=== PATIENT | male | born 1930 | race Caucasian/White ===

== ENCOUNTER 2016-09-16 14:02 | Emergency (ER) | payer MEDICARE, BC ==
--- NOTE | 2016-09-16 15:40 | UC ---
Upper Extremity HPI - HPI Summary HPI Summary: 86 y/o male c/o left fifth finger redness, swelling, and tenderness which began at least 2 days ago. Denies any mechanism of injury or break in the skin but states, "I pick my nails all the time, and sometimes get infections from it." Redness and tenderness centered over the DCP joint. Reports, "having a gout flare up last night in his foot," denies any other symptoms. - History of Current Complaint Chief Complaint: UCSkin Stated Complaint: LEFT HAND/PINKY COMPLAINT Time Seen by Provider: 09/16/16 15:30 Hx Obtained From: Patient ?: No Onset/Duration: Sudden Onset - Patient reports he woke up with the finger swollen and painful 2 days ago Severity Initially: Severe Severity Currently: Severe - Severe pain to touch Pain Intensity: 6 Pain Scale Used: 0-10 Numeric Location Of Pain: Is Discrete @ - Left fifth DCP joint Aggravating Factor(s): Movement, Flexion, Extension Alleviating Factor(s): Nothing Associated Signs And Symptoms: Positive: Swelling, Redness - Risk Factors Non-Orthopedic Risk Factor: Negative DVT Risk Factors: Negative Septic Arthritis Risk Factor: Negative Compartment Syndrome Risk Factors: Pain - Allergies/Home Medications Allergies/Adverse Reactions: Allergies Allergy/AdvReac Type Severity Reaction Status Date / Time Furosemide Allergy Break out Verified 10/23/15 09:51 with rash Iodine Allergy Hives Verified 10/23/15 09:51 Home Medications: Home Medications Pantoprazole Sodium 40 mg PO DAILY 09/16/16 [History Confirmed 09/16/16] PMH/Surg Hx/FS Hx/Imm Hx Previously Healthy: Yes Endocrine History Of: Reports: Diabetes - NIDDM Denies: Thyroid Disease Cardiovascular History Of: Reports: Cardiac Disorders - TRIPLE BYPASS 1994, Hypertension, Pacemaker/ICD - both Respiratory History Of: Denies: Asthma GI/ History Of: Reports: Gall Bladder Disease - gall bladder removed, Renal Disease - Lt kidney removed 1969 Denies: Ulcer Neurological History Of: Denies: TIA, CVA, Dementia Psychological History Of: Denies: Anxiety, Depression - Surgical History Surgical History: Yes Surgery Procedure, Year, and Place: TRIPLE BYPASS, DIFIBRALATOR,PROSTATE REMOVAL , NEPHRECTOMY-LEFT,GALL BLADDER,APPENDECTOMY,SHOULDER SURGERY, - Family History Known Family History: Positive: Hypertension, Diabetes - Social History Occupation: Retired Alcohol Use: None Substance Use Type: None Smoking Status (MU): Former Smoker When Did the Patient Quit Smoking/Using Tobacco: 1988 - Immunization History Most Recent Influenza Vaccination: unknown Most Recent Tetanus Shot: unknown Most Recent Pneumonia Vaccination: uknown Review of Systems Constitutional: Negative Skin: Other - Left fifth finger inflammation Eyes: Negative ENT: Negative Respiratory: Negative Cardiovascular: Negative Gastrointestinal: Negative Genitourinary: Negative Motor: Negative Neurovascular: Negative Musculoskeletal: Edema - Left fifth finger Neurological: Negative Psychological: Negative All Other Systems Reviewed And Are Negative: Yes Physical Exam Triage Information Reviewed: Yes Appearance: Well-Appearing, No Pain Distress Vital Signs: Initial Vital Signs Temp 97.8 F 09/16/16 15:05 Pulse 70 09/16/16 15:05 Resp 16 09/16/16 15:05 Pulse Ox 97 09/16/16 15:05 Vital Signs Reviewed: Yes Eye Exam: Normal Eyes: Positive: Conjunctiva Clear ENT Exam: Normal ENT: Positive: Normal ENT inspection, Pharynx normal, Nasal congestion, TMs normal Dental Exam: Normal Neck exam: Normal Neck: Positive: Supple Respiratory Exam: Normal Respiratory: Positive: Chest non-tender, Lungs clear, Normal breath sounds, No respiratory distress Cardiovascular: Positive: RRR, No Murmur, Pulses Normal Abdominal Exam: Normal Abdomen Description: Positive: Nontender, No Organomegaly, Soft Bowel Sounds: Positive: Present Musculoskeletal Exam: Normal Musculoskeletal: Positive: ROM Limited @ - left fifth finger r/t to inflammation , Edema @ - Left fifth finger, Other: - Tenderness located over the left fifth DCP joint Neurological: Positive: Alert Psychological Exam: Normal Skin: Positive: Other - Left fifth finger swelling and inflammation Upper Extremity Course/Dx - Differential Dx/Diagnosis Provider Diagnoses: Left fifth finger cellulitis. Possible acute gout flare-up left fifth DCP joint Discharge - Discharge Plan Condition: Stable Disposition: HOME Prescriptions: Cephalexin CAP* [Keflex 500 CAP*] 500 mg PO TID #21 cap Naproxen TAB* [Naprosyn TAB*] 250 mg PO Q8H PRN #21 tab PRN Reason: Pain Patient Education Materials: Cellulitis (ED) Referrals: Andres Suarez MD [Primary Care Provider] - 7 Days Additional Instructions: Follow-up with Primary care provider in the next week to assess symptoms. If symptoms worsen, seek medical attention. Also, as discussed, seek medical care for worsening swelling, redness, pain, or streaking down the finger or the hand.
[2016-09-16 16:20] VITALS: BP 118/59
== END 2016-09-16 16:20 | disposition home or self-care (01) ==
LOC: UCCORT 14:02
DX: L03.012 Cellulitis of left finger (principal); Z95.0 Presence of cardiac pacemaker; Z88.8 Allergy status to other drugs, medicaments and biological substances; Z87.891 Personal history of nicotine dependence
CPT/HCPCS: 99212; G0463

== ENCOUNTER 2016-10-20 11:42 | Emergency (ER) | payer MEDICARE, BC ==
[2016-10-20 11:57] VITALS: BP 138/72
--- NOTE | 2016-10-20 12:33 | UC ---
Upper Extremity HPI - HPI Summary HPI Summary: Left arm pain since last night. No history of injury. Has a cardiac hx but denied any CP or shortness of breath. Not sure if had injury. Pain with movement of arm . [ End ] - History of Current Complaint Chief Complaint: UCUpperExtremity Stated Complaint: LEFT ARM PAIN-HX OF HEART Time Seen by Provider: 10/20/16 12:17 Hx Obtained From: Patient, Family/Chef Head - daughter in law Onset/Duration: Sudden Onset Severity Initially: Moderate Severity Currently: Moderate Location Of Pain: Is Diffuse - left shoulder and down arm Character: Dull, Stiffness Aggravating Factor(s): Movement Alleviating Factor(s): Rest Associated Signs And Symptoms: Positive: Negative - Risk Factors Compartment Syndrome Risk Factors: Pain - Allergies/Home Medications Allergies/Adverse Reactions: Allergies Allergy/AdvReac Type Severity Reaction Status Date / Time Furosemide Allergy Break out Verified 10/20/16 12:08 with rash Iodine Allergy Hives Verified 10/20/16 12:08 PMH/Surg Hx/FS Hx/Imm Hx Previously Healthy: Yes Endocrine History Of: Reports: Diabetes - NIDDM Denies: Thyroid Disease Cardiovascular History Of: Reports: Cardiac Disorders - TRIPLE BYPASS 1994, Hypertension, Pacemaker/ICD - both Respiratory History Of: Denies: Asthma GI/ History Of: Reports: Gall Bladder Disease - gall bladder removed, Renal Disease - Lt kidney removed 1969 Denies: Ulcer Neurological History Of: Denies: TIA, CVA, Dementia Psychological History Of: Denies: Anxiety, Depression - Surgical History Surgical History: Yes Surgery Procedure, Year, and Place: TRIPLE BYPASS, DEFIBRALATOR,PROSTATE REMOVAL , NEPHRECTOMY-LEFT 1969,GALL BLADDER,APPENDECTOMY,LEFT SHOULDER SURGERY, - Family History Known Family History: Positive: Hypertension, Diabetes - Social History Occupation: Retired Lives: Alone Alcohol Use: None Substance Use Type: None Smoking Status (MU): Former Smoker When Did the Patient Quit Smoking/Using Tobacco: 1988 - Immunization History Most Recent Influenza Vaccination: unknown Most Recent Tetanus Shot: unknown Most Recent Pneumonia Vaccination: uknown Review of Systems Constitutional: Negative Skin: Negative Eyes: Negative ENT: Negative Respiratory: Negative Cardiovascular: Negative Gastrointestinal: Negative Genitourinary: Negative Motor: Negative Neurovascular: Negative Musculoskeletal: Arthralgia, Decreased ROM Neurological: Negative Psychological: Negative All Other Systems Reviewed And Are Negative: Yes Physical Exam Triage Information Reviewed: Yes Appearance: Well-Appearing, No Pain Distress, Well-Nourished Vital Signs: Initial Vital Signs Temp 98.1 F 10/20/16 11:51 Pulse 65 10/20/16 11:51 Resp 16 10/20/16 11:51 BP 138/72 10/20/16 11:51 Pulse Ox 97 10/20/16 11:51 Vital Signs Reviewed: Yes Eye Exam: Normal Neck: Positive: 1 Respiratory Exam: Normal Cardiovascular Exam: Normal Cardiovascular: Positive: RRR, Pulses Normal, Brisk Capillary Refill. Negative : Tachycardia, Bradycardia, Distal Pulses Weak, Distal Pulses Absent, Delayed Capillary Refill Musculoskeletal: Positive: No Edema, Strength Limited @ - hand strength right 5/ 5 and left 5/5 Left arm with reduced ROM and dimished greatly. flexion of shoulder 10 degrees before pain., ROM Limited @ - diffusely at left shoulder. Negative: Edema @ Neurological Exam: Normal Psychological Exam: Normal Skin Exam: Normal, Other - both hands with similar color appearance, radial pulses present and normal Re-Evaluation - Re-Evaluation First Eval Change: Unchanged Comment: Reviewed xray -- he agree with plan shoulder rotator cuff could be causing pain. AVOID NSAIDs. He declined shoulder brace as he has one at home that he will wear. Daughter in law and patient aware and agree with plan to call ortho tomorrow for possible MRI. Upper Extremity Course/Dx - Differential Dx/Diagnosis Differential Diagnosis/HQI/PQRI: Bursitis, Fracture (Closed), Septic Arthritis, Strain, Sprain Provider Diagnoses: Left shoulder pain Discharge - Discharge Plan Condition: Good Disposition: HOME Patient Education Materials: Shoulder Pain (ED) Referrals: Andres Suarez MD [Primary Care Provider] - 3 Days Sharona Milton MD [Medical Doctor] - Additional Instructions: As we discussed your xray shows possible rotator cuff pathology and you should follow up with Ortho. Please use your shoulder brace at home as well. Please avoid NSAIDs like motrin or Aleve for pain due to your cardiac history. You may use tylenol .
--- NOTE | 2016-10-20 13:09 | RAD ---
INDICATION: Left shoulder pain. COMPARISON: Comparison is made with a prior study from December 08, 2007. TECHNIQUE: 3 views of the left shoulder were obtained. FINDINGS: Postsurgical changes most likely from a prior rotator cuff tear are noted. There is mild superior subluxation of the humeral head possibly indicating underlying rotator cuff pathology. No fracture is seen. There is mild to moderate osteoarthritic change in the glenohumeral joint. IMPRESSION: 1. MILD SUPERIOR SUBLUXATION OF THE HUMERAL HEAD POSSIBLY INDICATING UNDERLYING ROTATOR CUFF PATHOLOGY. THIS CAN BE FURTHER EVALUATED WITH AN MRI OF THE SHOULDER. 2. POSTSURGICAL CHANGES. 3. MILD TO MODERATE OSTEOARTHRITIC CHANGE.
== END 2016-10-20 13:45 | disposition home or self-care (01) ==
LOC: UCCORT 11:42
DX: M25.512 Pain in left shoulder (principal); E11.9 Type 2 diabetes mellitus without complications; I10 Essential (primary) hypertension; Z95.0 Presence of cardiac pacemaker; Z95.1 Presence of aortocoronary bypass graft; Z90.49 Acquired absence of other specified parts of digestive tract; Z90.5 Acquired absence of kidney; Z87.891 Personal history of nicotine dependence
CPT/HCPCS: 93005; 99212; G0463

== ENCOUNTER 2016-11-08 08:07 | Emergency (ER) | payer MEDICARE, BC ==
[2016-11-08] MEDS ORDERED: Ketorolac INJ* 60 MG/2 ML VIAL IM ONE (08:32)
[2016-11-08] MEDS ORDERED: Diazepam TAB(*) 5 MG PO ONE (08:33)
--- NOTE | 2016-11-08 09:50 | RAD ---
HISTORY: Left neck pain COMPARISONS: None TECHNIQUE: Multiple transverse and longitudinal ultrasound images were obtained of the carotid and vertebral arteries on the left, using grayscale, color Doppler, and spectral Doppler imaging. FINDINGS: Measurement of carotid stenosis is based on flow velocity parameters that correlate the residual internal carotid artery diameter with [place] Symptomatic Carotid Endarterectomy Trial (NASCET)-based stenosis levels. RIGHT: No images are submitted of the right vertebral or internal carotid artery LEFT: Intima: There is diffuse intimal thickening with more focal atheroma formation at the bifurcation. Velocities: Left internal carotid artery maximum peak systolic velocity: 76 cm/s Left common carotid artery maximum peak systolic velocity: 123 cm/s Left internal carotid artery/common carotid artery ratio: 0.8 Waveforms: There is no spectral broadening. Left Vertebral: The left vertebral artery flow is antegrade. OTHER FINDINGS: None. IMPRESSION: 1. NO IMAGES ARE SUBMITTED OF THE RIGHT INTERNAL CAROTID ARTERY. 2. ATHEROMATOUS DISEASE. 3. NO LEFT INTERNAL CAROTID ARTERY STENOSIS BY NASCET CRITERIA CPT II Codes: 3100F
[2016-11-08] MEDS ORDERED: HYDROcodone/ACETAMIN 5-325 MG* 1 TAB PO ONE (10:19)
[2016-11-08 13:02] VITALS: BP 109/63
--- NOTE | 2016-12-06 10:36 | ED ---
Carlos Vargas Matthew, scribed for Saad Lucas MD on 11/08/16 at 0832 . Neck Pain - HPI Summary HPI Summary: An 86 y/o male presents to the ED with left sided neck pain for the past 2 days. The pain is rated 10/10 in severity. He was unable to get out of bed this morning from the pain, which prompted him to call EMS. The pain is worse with movement. He denies tingling, numbness, headache, difficulty swallowing, and blurry vision. No Hx of CVA. He's been taking 650mg Tylenol for the pain. He takes 81mg aspirin daily. He states that he needs surgery on his left shoulder from a previous rotator cuff injury. He was seen by his PCP yesterday. No Hx of previous neck injury or surgeries. No recent work or new sleeping locations. - History of Current Complaint Stated Complaint: LEFT SHOULDER AND NECK PAIN Time Seen by Provider: 11/08/16 08:20 Hx Obtained From: Patient Onset/Duration Of Injury/Symptoms: Days - 2 Mechanism Of Injury: No Known Trauma Timing: Constant Onset/Duration: Started days ago, Still Present Severity Initially: Moderate Severity Currently: Moderate Pain Intensity: 10 Pain Scale Used: 0-10 Numeric Location: Discrete At: - left sided of the neck Aggravating Factors: Movement Alleviating Factors: Nothing Associated Signs & Symptoms: Positive: Negative - Allergies/Home Medications Allergies/Adverse Reactions: Allergies Allergy/AdvReac Type Severity Reaction Status Date / Time Furosemide Allergy Break out Verified 10/20/16 12:08 with rash Iodine Allergy Hives Verified 10/20/16 12:08 Home Medications: Home Medications Aspirin EC Low Dose* [Ecotrin EC Low Dose 81 MG*] 81 mg PO QAM 11/08/16 [ History Confirmed 11/08/16] Bumetanide TAB* [Bumex 2 MG TAB*] 2 mg PO QPM 11/08/16 [History Confirmed ] Bumetanide TAB* [Bumex 2 MG TAB*] 4 mg PO QAM 11/08/16 [History Confirmed ] Cholecalciferol TAB* [Vitamin D TAB*] 2,000 units PO DAILY 11/08/16 [History Confirmed 11/08/16] Clotrimazole/Betamethasone* [Lotrisone Cream*] 1 applic TOPICAL BID 11/08/16 [ History Confirmed 11/08/16] Glimepiride (NF) 4 mg PO BID 11/08/16 [History Confirmed 11/08/16] Halobetasol Propionate [Ultravate] 0.05 % TOPICAL BID 11/08/16 [History Confirmed 11/08/16] Metoprolol Tartrate TAB* [Lopressor TAB*] 25 mg PO BID 11/08/16 [History Confirmed 11/08/16] Pantoprazole TAB (NF) [Protonix TAB (NF)] 40 mg PO QAM 11/08/16 [History Confirmed 11/08/16] PMH/Surg Hx/FS Hx/Imm Hx Endocrine/Hematology History: Reports: Hx Diabetes - NIDDM Denies: Hx Thyroid Disease Cardiovascular History: Reports: Hx Hypertension, Hx Pacemaker/ICD - both Respiratory History: Reports: Hx Seasonal Allergies, Hx Sleep Apnea Denies: Hx Asthma GI History: Reports: Hx Gall Bladder Disease - gall bladder removed Denies: Hx Ulcer History: Reports: Hx Renal Disease - Lt kidney removed 1969, Other Problems/Disorders - Prostate cancer Sensory History: Reports: Hx Cataracts, Hx Contacts or Glasses Opthamlomology History: Reports: Hx Cataracts, Hx Contacts or Glasses Neurological History: Denies: Hx Dementia, Hx Transient Ischemic Attacks (TIA) Psychiatric History: Denies: Hx Anxiety, Hx Depression - Cancer History Cancer Type, Location and Year: prostate 2009 - Surgical History Surgery Procedure, Year, and Place: TRIPLE BYPASS, DEFIBRALATOR,PROSTATE REMOVAL , NEPHRECTOMY-LEFT 1969,GALL BLADDER,APPENDECTOMY,LEFT SHOULDER SURGERY, Infectious Disease History: Reports: 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, Hx Shingles - in his 60's Denies: Hx Hepatitis, Hx Human Immunodeficiency Virus (HIV), Traveled Outside the [place] in Last 30 Days - Family History Known Family History: Positive: Hypertension, Diabetes - Social History Alcohol Use: None Substance Use Type: Reports: None Smoking Status (MU): Former Smoker Review of Systems Constitutional: Negative Negative: Fever, Chills Eyes: Negative Negative: Erythema ENT: Negative Negative: Sore Throat Cardiovascular: Negative Negative: Chest Pain Respiratory: Negative Negative: Shortness Of Breath, Cough Gastrointestinal: Negative Negative: Abdominal Pain, Vomiting, Diarrhea, Nausea Genitourinary: Negative Negative: dysuria, hematuria Positive: Myalgia - left sided neck pain Skin: Negative Negative: Rash Neurological: Negative Negative: Headache, Numbness Psychological: Normal All Other Systems Reviewed And Are Negative: Yes Physical Exam Triage Information Reviewed: Yes Vital Signs On Initial Exam: Temp Pulse Resp BP Pulse Ox 99.1 F 70 20 123/68 95 11/08/16 08:39 11/08/16 08:39 11/08/16 08:47 11/08/16 08:39 11/08/16 08:39 Vital Signs Reviewed: Yes Appearance: Positive: Well-Appearing, Pain Distress - miold Skin: Positive: Warm, Dry Head/Face: Positive: Other - Normocephalic; Atraumatic Eyes: Positive: Conjunctiva Clear Neck: Positive: No Lymphadenopathy, Other: - torticollis to the left; pain with lateral rotation of the neck; no carotid bruits Respiratory/Lung Sounds: Positive: Other - Normal Effort; No Respiratory Distress. Negative: Rales, Stridor, Tracheal Deviation, Wheezes Cardiovascular: Positive: RRR, Other - Rhythm regular, rate normal, Heart sounds normal; Intact distal pulses; The pedal pulses are 2+ and symmetric. Radial pulses are 2+ and symmetric.. Negative: Murmur Abdomen Description: Positive: Nontender, Soft, Other: - No Rebound. Negative: Distended, Guarding Bowel Sounds: Positive: Present Musculoskeletal: Negative: Edema Left, Edema Right Neurological: Positive: Alert, Oriented to Person Place, Time Psychiatric: Positive: Affect/Mood Appropriate Diagnostics - Laboratory Lab Statement: Any lab studies that have been ordered have been reviewed, and results considered in the medical decision making process. - Ultrasound No standard instances Ultrasound Interpretation: No Acute Changes - IMPRESSION: 1. NO IMAGES ARE SUBMITTED OF THE RIGHT INTERNAL CAROTID ARTERY. 2. ATHEROMATOUS DISEASE. 3. NO LEFT INTERNAL CAROTID ARTERY STENOSIS BY NASCET CRITERIA Ultrasound Interpretation Completed By: Radiologist Re-Evaluation - Re-Evaluation First Eval Re-Evaluation Time: 10:19 Change: Improved Comment: Mild improvement in pain Neck Course/Dx - Course Assessment/Plan: An 86 y/o male presents to the ED with left sided neck pain for the past 2 days. The pain is rated 10/10 in severity. He was unable to get out of bed this morning from the pain, which prompted him to call EMS. The pain is worse with movement. He denies tingling, numbness, headache, difficulty swallowing, and blurry vision. No Hx of CVA. He's been taking 650mg Tylenol for the pain. He takes 81mg aspirin daily. US shows 1. no images are submitted of the right internal carotid artery. 2. atheromatous disease. 3. no left internal carotid artery stenosis by nascet criteria. On revaluation, the patients pain had been improving. He will be sent home on valium and lidocaine patches to follow-up with his PCP. He understands and agrees. - Diagnoses Provider Diagnoses: Cervical strain Discharge - Discharge Plan Condition: Stable Disposition: HOME Prescriptions: Diazepam TAB(*) [Valium TAB(*)] 5 mg PO TID PRN #12 tab MDD 3 PRN Reason: Pain Scale 6-10 Lidocaine PATCH 5%* [Lidoderm 5% Patch*] 1 patch TRANSDERM DAILY #10 patch Patient Education Materials: Cervical Strain (ED), Diazepam (By mouth), Lidocaine Patch (On the skin) Referrals: Andres Suarez MD [Primary Care Provider] - 11/11/16 Additional Instructions: Please follow-up with your primary care on Friday (11/11/16). The documentation as recorded by the Carlos mei Matthew accurately reflects the service I personally performed and the decisions made by me, Saad Lucas MD.
== END 2016-11-08 13:01 | disposition home or self-care (01) ==
LOC: ED 08:07
DX: S16.1XXA Strain of muscle, fascia and tendon at neck level, initial encounter (principal); M25.512 Pain in left shoulder; M54.2 Cervicalgia; Z87.891 Personal history of nicotine dependence; X58.XXXA Exposure to other specified factors, initial encounter; Y93.9 Activity, unspecified; Y92.9 Unspecified place or not applicable
CPT/HCPCS: 96372; 99283; A9270-GY; J1885

== ENCOUNTER 2016-11-15 14:53 | Emergency (ER) | payer MEDICARE, BC ==
--- NOTE | 2016-11-15 15:46 | UC ---
UC General HPI - HPI Summary HPI Summary: bilateral lower leg swelling, pain and redness for a few days. Hx cellulitis. Also hx bladder and prostate CA. No CP, SOB. - History of Current Complaint Chief Complaint: UCLowerExtremity Stated Complaint: BILATERAL ANKLE SWELLING Time Seen by Provider: 11/15/16 15:45 Hx Obtained From: Patient Onset/Duration: Gradual Onset Timing: Constant Onset Severity: Moderate Current Severity: Moderate Pain Intensity: 2 Pain Location at: bilat lower legs Pain Radiates to: no Character: aching Aggravating: nothing Alleviating: nothing Associated Signs & Symptoms: Positive: Edema. Negative: Fever, SOB, Trauma - Allergy/Home Medications Allergies/Adverse Reactions: Allergies Allergy/AdvReac Type Severity Reaction Status Date / Time Furosemide Allergy Break out Verified 11/15/16 15:37 with rash Iodine Allergy Hives Verified 11/15/16 15:37 PMH/Surg Hx/FS Hx/Imm Hx Endocrine History Of: Reports: Diabetes - type II Denies: Thyroid Disease Cardiovascular History Of: Reports: Cardiac Disorders - TRIPLE BYPASS 1994; [place] 1988, Hypertension, Pacemaker/ICD - both Respiratory History Of: Denies: Asthma GI/ History Of: Reports: Gall Bladder Disease - gall bladder removed, Renal Disease - Lt kidney removed 1969 Denies: Ulcer Neurological History Of: Denies: TIA, CVA, Dementia Psychological History Of: Denies: Anxiety, Depression - Surgical History Surgical History: Yes Surgery Procedure, Year, and Place: TRIPLE BYPASS, DEFIBRALATOR,PROSTATE REMOVAL , NEPHRECTOMY-LEFT 1969,GALL BLADDER,APPENDECTOMY,LEFT SHOULDER SURGERY, - Family History Known Family History: Positive: Hypertension, Diabetes - Social History Occupation: Retired Alcohol Use: None Substance Use Type: None Smoking Status (MU): Former Smoker When Did the Patient Quit Smoking/Using Tobacco: 1988 - Immunization History Most Recent Influenza Vaccination: unknown Most Recent Tetanus Shot: unknown Most Recent Pneumonia Vaccination: uknown Review of Systems Constitutional: Negative Skin: Negative Eyes: Negative ENT: Negative Respiratory: Negative Cardiovascular: Negative Gastrointestinal: Negative Genitourinary: Negative Motor: Negative Neurovascular: Negative Musculoskeletal: Arthralgia, Myalgia, Other: - swelling, redness Neurological: Negative Psychological: Negative All Other Systems Reviewed And Are Negative: Yes Physical Exam Triage Information Reviewed: Yes Appearance: Well-Nourished, Ill-Appearing, Pain Distress Vital Signs: Initial Vital Signs Temp 99.1 F 11/15/16 15:30 Pulse 68 11/15/16 15:30 Resp 20 11/15/16 15:30 BP 116/69 11/15/16 15:30 Pulse Ox 97 11/15/16 15:30 Vital Signs Reviewed: Yes Eyes: Positive: Conjunctiva Clear ENT: Positive: Normal ENT inspection Neck: Positive: Supple Respiratory: Positive: Lungs clear, Normal breath sounds, No respiratory distress, No accessory muscle use Cardiovascular: Positive: RRR, No Murmur, Pulses Normal, Brisk Capillary Refill Musculoskeletal: Positive: Strength Intact, ROM Intact, Edema @ - 2+ bilat, left greater than right, Other: - redness bilat legs to knees Neurological: Positive: Alert, Muscle Tone Normal Psychological Exam: Normal Skin Exam: Normal Course/Dx - Course Course Of Treatment: pt advised that this is above the level of care for urgent care. Pt states he wants to go to [facility] by private car. Signs AMA. Ambulatory at discharge. - Differential Dx - Multi-Symptom Differential Diagnoses: Other - CHF vs Cellulitis vs DVT Provider Diagnoses: bilateral pedal edema and redness and pain - Physician Notifications Time Discussed With Above Provider: 16:00 - Dr. Isidro, [facility] Instructed by Provider To: MD Will See In ED Discharge - Discharge Plan Condition: Stable Disposition: AGAINST MEDICAL ADVICE Referrals: Andres Suarez MD [Primary Care Provider] -
[2016-11-15 16:00] VITALS: BP 116/69
== END 2016-11-15 16:14 | disposition left against medical advice (07) ==
LOC: UCCORT 14:53
DX: R60.9 Edema, unspecified (principal); M79.662 Pain in left lower leg; M79.661 Pain in right lower leg; E11.8 Type 2 diabetes mellitus with unspecified complications; I10 Essential (primary) hypertension; Z95.0 Presence of cardiac pacemaker; Z95.1 Presence of aortocoronary bypass graft; Z90.49 Acquired absence of other specified parts of digestive tract; Z90.5 Acquired absence of kidney; Z85.51 Personal history of malignant neoplasm of bladder; Z85.46 Personal history of malignant neoplasm of prostate; Z87.891 Personal history of nicotine dependence
CPT/HCPCS: 99212; G0463

== ENCOUNTER 2016-11-15 17:19 | Inpatient (IN) | payer MEDICARE, BC ==
[2016-11-15] MEDS ORDERED: ceFAZolin 1 GM in Dextrose (*) 1 GM/50 ML BAG IVPB ONE (20:29)
[2016-11-15 21:31] LABS: Hematocrit 43 % (42-52); Hemoglobin 14.3 g/dl (14.0-18.0); Mean Corpuscular HGB Conc 33 g/dl (31-36); Mean Corpuscular Hemoglobin 29 pg (27-31); Mean Corpuscular Volume 87 fL (80-94); Mean Platelet Volume 8 um3 (7.4-10.4); Red Blood Count 4.99 10^6/ul (4.0-5.4); Red Cell Distribution Width 14 % (10.5-15); White Blood Count 8.7 10^3/ul (3.5-10.8)
[2016-11-15 21:45] LABS: BUN/Creatinine Ratio 21.7 (8-20); C Reactive Protein 29.55 mg/L (< 5.00); Calcium 9.7 mg/dL (8.6-10.3); EGFR African American 43.6 (>60); EGFR Non-African American 33.9 (>60); Globulin 3.8 g/dL (2-4); Potassium 4.1 mmol/L (3.5-5.0); Total Bilirubin 0.5 mg/dL (0.2-1.0); Total Protein 7.8 g/dL (6.4-8.9)
--- NOTE | 2016-11-15 22:50 | RAD ---
INDICATION: Lower extremity pain and swelling. COMPARISON: There are no prior studies available for comparison. TECHNIQUE: Multiple real-time, color flow and Doppler tracings of both lower extremities were obtained. FINDINGS: The common femoral, femoral, profunda femoral and popliteal veins all demonstrate normal compressibility, augmentation with compression and phasic response with respiration. The examination of the calves is limited. No peroneal and only one posterior tibial vein was visualized in the right calf. On the left the posterior tibial veins were visualized although only one peroneal vein was visualized. No deep venous thrombosis is seen in the visualized veins. IMPRESSION: LIMITED EXAM OF THE CALVES, NO EVIDENCE FOR DEEP VENOUS THROMBOSIS.
[2016-11-15] MEDS ORDERED: traMADol TAB* 50 MG PO ONE (22:54)
--- NOTE | 2016-11-15 22:57 | ED ---
Madhu Vargas Aidan, scribed for Chuy Isidro MD on 11/15/16 at 2038 . Lower Extremity - HPI Summary HPI Summary: 86 y/o male presents to the ED with a complaint of acute, constant, moderately painful (7/10), erythematous, swollen bilateral lower extremities. Symptoms have persisted for the past several days. Pt denies any difficulty breathing or weeping. He is allergic to zosyn. - History of Current Complaint Chief Complaint: EDExtremityLower Stated Complaint: SWOLLEN ANKLES/SENT FROM [facility] Time Seen by Provider: 11/15/16 20:14 Hx Obtained From: Patient Mechanism Of Injury: Unknown Onset of Pain: Immediate Onset/Duration: Still Present - Sx began several days ago Severity Initially: Moderate Severity Currently: Moderate Pain Intensity: 7 Pain Scale Used: 0-10 Numeric Timing: Constant Location: Is Discrete @ - lower extremities bilaterally Character Of Pain: Unable To Describe - pain undescribed Associated Signs And Symptoms: Positive: Swelling - legs bilaterally, Redness - legs bilaterally Aggravating Factor(s): Other - unknown Alleviating Factor(s): Other - unknown Able to Bear Weight: Yes - Risk Factors Gout Risk Factors: Age Over 40, Male, Diabetes, Hypertension DVT Risk Factors: Smoking - former smoker - Allergies/Home Medications Allergies/Adverse Reactions: Allergies Allergy/AdvReac Type Severity Reaction Status Date / Time Furosemide Allergy Break out Verified 11/15/16 20:32 with rash Iodine Allergy Hives Verified 11/15/16 20:32 PMH/Surg Hx/FS Hx/Imm Hx Endocrine/Hematology History: Reports: Hx Diabetes - NIDDM Denies: Hx Thyroid Disease Cardiovascular History: Reports: Hx Hypertension, Hx Pacemaker/ICD - both Respiratory History: Reports: Hx Seasonal Allergies, Hx Sleep Apnea Denies: Hx Asthma GI History: Reports: Hx Gall Bladder Disease - gall bladder removed Denies: Hx Ulcer History: Reports: Hx Renal Disease - Lt kidney removed 1969, Other Problems/Disorders - Prostate cancer Sensory History: Reports: Hx Cataracts, Hx Contacts or Glasses Opthamlomology History: Reports: Hx Cataracts, Hx Contacts or Glasses Neurological History: Denies: Hx Dementia, Hx Transient Ischemic Attacks (TIA) Psychiatric History: Denies: Hx Anxiety, Hx Depression - Cancer History Cancer Type, Location and Year: prostate 2009 - Surgical History Surgery Procedure, Year, and Place: TRIPLE BYPASS, DEFIBRALATOR,PROSTATE REMOVAL , NEPHRECTOMY-LEFT 1970,GALL BLADDER,APPENDECTOMY,LEFT SHOULDER SURGERY, Infectious Disease History: Reports: 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 Negative: Myalgia, Decreased ROM Skin: Other - erythematous legs bilaterally Negative: Rash, Bruising All Other Systems Reviewed And Are Negative: Yes Physical Exam Triage Information Reviewed: Yes Vital Signs On Initial Exam: Initial Vitals Temp Pulse Resp BP Pulse Ox 97.7 F 72 20 137/64 98 11/15/16 17:21 11/15/16 17:21 11/15/16 17:21 11/15/16 17:21 11/15/16 17:21 Vital Signs Reviewed: Yes Appearance: Positive: Well-Appearing, No Pain Distress Skin: Positive: Warm, Skin Color Reflects Adequate Perfusion, Dry Head/Face: Positive: Normal Head/Face Inspection Eyes: Positive: Normal ENT: Positive: Normal ENT inspection Neck: Positive: Supple, Nontender Respiratory/Lung Sounds: Positive: Clear to Auscultation, Breath Sounds Present Cardiovascular: Positive: RRR Abdomen Description: Positive: Nontender, Soft Bowel Sounds: Positive: Present Musculoskeletal: Positive: Edema Left - bilateral lower extremity edema and erythema with warmth, Edema Right - bilateral lower extremity edema and erythema with warmth Neurological: Positive: Normal Psychiatric: Positive: Affect/Mood Appropriate Diagnostics - Vital Signs Vital Signs Temp Pulse Resp BP Pulse Ox 11/15/16 18:56 98.1 F 72 18 121/83 96 11/15/16 17:21 97.7 F 72 20 137/64 98 - Laboratory Lab Results: Lab Results 11/15/16 11/15/16 11/15/16 Range/Units 21:15 21:15 21:15 WBC 8.7 (3.5-10.8) 10^3/ul RBC 4.99 (4.0-5.4) 10^6/ul Hgb 14.3 (14.0-18.0) g/dl Hct 43 (42-52) % MCV 87 (80-94) fL MCH 29 (27-31) pg MCHC 33 (31-36) g/dl RDW 14 (10.5-15) % Plt Count 173 (150-450) 10^3/ul MPV 8 (7.4-10.4) um3 Neut % (Auto) 67.3 (38-83) % Lymph % (Auto) 17.9 L (25-47) % [place] % (Auto) 8.8 (1-9) % Eos % (Auto) 5.4 (0-6) % Baso % (Auto) 0.6 (0-2) % Absolute Neuts (auto) 5.8 (1.5-7.7) 10^3/ul Absolute Lymphs (auto) 1.5 (1.0-4.8) 10^3/ul Absolute Monos (auto) 0.8 (0-0.8) 10^3/ul Absolute Eos (auto) 0.5 (0-0.6) 10^3/ul Absolute Basos (auto) 0.1 (0-0.2) 10^3/ul Absolute Nucleated RBC 0 10^3/ul Nucleated RBC % 0 D-Dimer, Quantitative 374 H (Less Than 230) ng/mL Sodium 135 (133-145) mmol/L Potassium 4.1 (3.5-5.0) mmol/L Chloride 100 L (101-111) mmol/L Carbon Dioxide 28 (22-32) mmol/L Anion Gap 7 (2-11) mmol/L BUN 41 H (6-24) mg/dL Creatinine 1.89 H (0.67-1.17) mg/dL Est GFR ( Amer) 43.6 (>60) Est GFR (Non-Af Amer) 33.9 (>60) BUN/Creatinine Ratio 21.7 H (8-20) Glucose 135 H (70-100) mg/dL Calcium 9.7 (8.6-10.3) mg/dL Total Bilirubin 0.50 (0.2-1.0) mg/dL AST 16 (13-39) U/L ALT 14 (7-52) U/L Alkaline Phosphatase 65 (34-104) U/L C-Reactive Protein 29.55 H (< 5.00) mg/L Total Protein 7.8 (6.4-8.9) g/dL Albumin 4.0 (3.2-5.2) g/dL Globulin 3.8 (2-4) g/dL Albumin/Globulin Ratio 1.1 (1-3) Result Diagrams: 11/15/16 21:15 11/15/16 21:15 Lab Statement: Any lab studies that have been ordered have been reviewed, and results considered in the medical decision making process. Lower Extremity Course/Dx - Course Course Of Treatment: 86 y/o presents with bilateral lower extremity edema and erythema with warmth. He was R/U'd for DVT and given antibiotics and pain meds in the ED. He is stable and will be given a trial of outpatient treatment. - Diagnoses Provider Diagnoses: Cellulitis Discharge - Discharge Plan Condition: Stable Disposition: HOME Discharge Disposition Comment: Please follow up with your primary care privider within 2 days. Patient Education Materials: Cellulitis (ED) Referrals: Andres Suarez MD [Primary Care Provider] - The documentation as recorded by the Madhu mei Aidan accurately reflects the service I personally performed and the decisions made by me, Chuy Isidro MD.
[2016-11-15] MEDS ORDERED: Cephalexin CAP* 500 MG PO ONE (22:58)
[2016-11-16] MEDS ORDERED: HYDROmorphone* 1 MG/ML 1 ML SYR IV ONE ×2 (02:31→16:55)
--- NOTE | 2016-11-16 03:16 | HP ---
H&P (Free Text) History and Physical: PCP: Grover Suarez MD Date/Time of Evaluation: 11/16/2016 0315 CC: BLE swelling HPI: Mr Briscoe is an 86YO obese male who reports rapid onset ~3days ago of BLE pain and swelling which did not improve and so today he decided to present to an urgent care for evaluation. He drove himself to urgent care where concern was had for possible DVT vs CHF vs BLE cellulitis and so he was referred on to [facility] via ambulance which he refused and signed out AMA preferring to drive himself to [facility] and ambulate in to the ED. Work up here revealed a mild BLE cellulititis, negative for DVT, & no compelling evidence for CHF. He denies chest pain, SOB, palpitations, F/C, sweats, changes in bowel/bladder, or other issues. He was given a dose of cefazolin IV and planned to be discharged on PO cephalexin. However, when presented with discharge he claimed he was unable to care for himself at home due to the L>RLE pain despite having been able to drive to and ambulate in to the ED. He was advised that admission for his condition was not considered medically necessary and that insurance may not pay for the admission. The pre-admit denial form was explained to him by ED staff and he agreed. Vitals are stable, afebrile. Labs are baseline for him. US BLE venous is negative for DVT. PMedHx CAD/3vCABG DM2 CKD stg 3b HX prostate CA HX bladder CA HTN HLD allergic rhinitis Ambulatory Orders Pravastatin (NF) [Pravachol (NF)] 20 mg PO QPM 07/23/12 Cetirizine* [ZyrTEC*] 10 mg PO QAM 02/26/15 Polyethylene Glycol 3350* [Miralax*] 17 gm PO QAM 02/26/15 Triamcinolone 0.5% CREAM(NF) [Triamcinolone 0.5% CREAM*] 1 applic TOPICAL BID Aspirin EC Low Dose* [Ecotrin EC Low Dose 81 MG*] 81 mg PO QAM 11/08/16 Bumetanide TAB* [Bumex 2 MG TAB*] 2 mg PO QPM 11/08/16 Bumetanide TAB* [Bumex 2 MG TAB*] 4 mg PO QAM 11/08/16 Cholecalciferol TAB* [Vitamin D TAB*] 2,000 units PO DAILY 11/08/16 Glimepiride (NF) 4 mg PO BID 11/08/16 Halobetasol Propionate [Ultravate] 0.05 % TOPICAL BID 11/08/16 Metoprolol Tartrate TAB* [Lopressor TAB*] 25 mg PO BID 11/08/16 Pantoprazole TAB (NF) [Protonix TAB (NF)] 40 mg PO QAM 11/08/16 Metoprolol Succinate [Toprol Xl] 25 mg PO 11/16/16 Allergies Furosemide Allergy (Verified 11/15/16 20:32) Break out with rash Iodine Allergy (Verified 11/15/16 20:32) Hives PSurgHx 3vCABG RLE saphenous vein harvest cholecystectomy appendectomy transurethral bladder CA resection prostatectomy SocHx: former smoker w/ ~25PYHX, no alcohol or recreational drugs; , lives alone; 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, 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 ; DNR/I code status FamHx: positive for HTN & DM2 ROS: as above, otherwise reviewed and all were negative Constitutional: NAD, normally developed, obese elderly white male vitals: Vital Signs Temp 37.4 C 11/15/16 20:27 Pulse 74 11/15/16 21:00 Resp 18 11/16/16 02:36 BP 143/82 11/15/16 20:34 Pulse Ox 99 11/15/16 21:00 Intake & Output 11/15/16 11/15/16 11/16/16 11:59 23:59 11:59 Weight 96.162 kg HEENM: atraumatic; sclera/conjunctiva: non-icteric/clear; hearing: clinically mildly decreased; oropharynx: clear, mucosa moist Neck: soft tissue: non-tender; thyroid: normal Pulmonary: clear to auscultation bilaterally, good aeration, no accessory muscle use CV: RR/RR, normal S1S2, no carotid bruit, no jugular venous distention, 2+ B DP/ PT, 2+ BLE & pedal edema Abdominal: soft, non-distended, non-tender, no rebound/guarding/rigidity, normoactive bowel sounds, no hepatosplenomegaly or masses, no costovertebral angle tenderness Musculoskeletal: general: grossly intact; gait: reports inability to ambulate 2nd pain in L>RLE, full active & passive ROM of R knee, mildly decreased ROM L knee 2nd pain; BLE strength 4+/5 proximally & distally Integumental: minimal B distal LE erythema without open wound, drainage, flocculence, or warmth Psychiatric orientation: AA&O to PPS affect: calm mood: cooperative eye contact: poor content: reliable responses: timely insight: fair Testing: Lab Results 11/15/16 11/15/16 11/15/16 Range/Units 21:15 21:15 21:15 WBC 8.7 (3.5-10.8) 10^3/ul RBC 4.99 (4.0-5.4) 10^6/ul Hgb 14.3 (14.0-18.0) g/dl Hct 43 (42-52) % MCV 87 (80-94) fL MCH 29 (27-31) pg MCHC 33 (31-36) g/dl RDW 14 (10.5-15) % Plt Count 173 (150-450) 10^3/ul MPV 8 (7.4-10.4) um3 Neut % (Auto) 67.3 (38-83) % Lymph % (Auto) 17.9 L (25-47) % [place] % (Auto) 8.8 (1-9) % Eos % (Auto) 5.4 (0-6) % Baso % (Auto) 0.6 (0-2) % Absolute Neuts (auto) 5.8 (1.5-7.7) 10^3/ul Absolute Lymphs (auto) 1.5 (1.0-4.8) 10^3/ul Absolute Monos (auto) 0.8 (0-0.8) 10^3/ul Absolute Eos (auto) 0.5 (0-0.6) 10^3/ul Absolute Basos (auto) 0.1 (0-0.2) 10^3/ul Absolute Nucleated RBC 0 10^3/ul Nucleated RBC % 0 D-Dimer, Quantitative 374 H (Less Than 230) ng/mL Sodium 135 (133-145) mmol/L Potassium 4.1 (3.5-5.0) mmol/L Chloride 100 L (101-111) mmol/L Carbon Dioxide 28 (22-32) mmol/L Anion Gap 7 (2-11) mmol/L BUN 41 H (6-24) mg/dL Creatinine 1.89 H (0.67-1.17) mg/dL Est GFR ( Amer) 43.6 (>60) Est GFR (Non-Af Amer) 33.9 (>60) BUN/Creatinine Ratio 21.7 H (8-20) Glucose 135 H (70-100) mg/dL Calcium 9.7 (8.6-10.3) mg/dL Total Bilirubin 0.50 (0.2-1.0) mg/dL AST 16 (13-39) U/L ALT 14 (7-52) U/L Alkaline Phosphatase 65 (34-104) U/L C-Reactive Protein 29.55 H (< 5.00) mg/L Total Protein 7.8 (6.4-8.9) g/dL Albumin 4.0 (3.2-5.2) g/dL Globulin 3.8 (2-4) g/dL Albumin/Globulin Ratio 1.1 (1-3) US BLE venous: IMPRESSION: LIMITED EXAM OF THE CALVES, NO EVIDENCE FOR DEEP VENOUS THROMBOSIS. Impression: 86M presenting with mild BLE cellulitis who reports being unable to care for himself at home 2nd pain and so agreed to usp admission DIAGNOSIS & PLAN Primary BLE cellulitis, mild : PO cephalexin : pain control : PT evaluation Secondary CAD/3vCABG : continue aspirin DM2 : continue glimepiride : correctional insulin : ACHS glucometry : consistent carb diet : check A1c CKD stg 3b : avoid nephrotoxic agents HTN : continue bumetanide & metoprolol HLD : continue pravastatin GERD : continue pantoprazole HX prostate & bladder CA : no acute issues or evidence of disease Admission Rational: SNF observation for BLE cellulitis & pain DVTp: heparin SQ Code Status: DNR/I HCP: daughterIvis
[2016-11-16] MEDS ORDERED: Acetaminophen TAB* 325 MG PO PRN (04:16)
[2016-11-16] MEDS: CMCS: Glimepiride (NF) 2 MG TAB PO SCH ×2 (08:02→17:52)
[2016-11-16] MEDS: Cetirizine* 10 MG TAB PO SCH (08:06)
[2016-11-16] MEDS: Bumetanide TAB* 2 MG PO SCH ×2 (08:06→17:51)
[2016-11-16] MEDS: Polyethylene Glycol 3350* 17 GM PACKET PO SCH (08:09)
[2016-11-16] MEDS: Aspirin EC Low Dose* 81 MG TAB.EC PO SCH (08:09)
[2016-11-16] MEDS: Metoprolol Tartrate TAB* 25 MG PO SCH ×2 (08:09→20:55)
[2016-11-16] MEDS: Omeprazole CAP* 20 MG PO SCH (08:09)
[2016-11-16] MEDS: oxyCODONE TAB* 5 MG TAB PO PRN ×3 (08:09→21:07)
[2016-11-16] MEDS: Insulin LISPRO* 1 UNITS UNIT SUBCUT SCH ×4 (08:10→20:54)
[2016-11-16] MEDS: Cephalexin CAP* 500 MG PO SCH ×4 (09:20→20:55)
--- NOTE | 2016-11-16 09:58 | RAD ---
Indication: LEFT knee pain. Cellulitis. Comparison: November 15, 2016 bilateral lower extremity venous ultrasound. October 28, 2007 radiographs. Technique: AP and crosstable lateral views LEFT knee. Report: Small suprapatellar joint effusion. Negative for fracture or malalignment. Mild osteophytosis without significant joint space narrowing. Mild anterior soft tissue swelling. Vascular calcifications. IMPRESSION: Small joint effusion and anterior soft tissue swelling. Negative for fracture.
[2016-11-16] MEDS ORDERED: HYDROmorphone* 1 MG/ML 1 ML SYR ONE (11:05)
[2016-11-16] MEDS: traMADol TAB* 50 MG PO PRN (11:09)
[2016-11-16 11:34] LABS: Erythrocyte Sed Rate 44 mm/Hr (0-40)
[2016-11-16 12:13] LABS: Body Fluid Appearance Cloudy; Body Fluid Total Cells Counted 100
[2016-11-16 12:14] LABS: Body Fluid WBC 7791 /mcL
--- NOTE | 2016-11-16 12:55 | HP ---
CC: PCP. DATE OF ADMISSION: 11/16/16 ATTENDING PHYSICIAN: Dr. Kesha Price. CONSULTING PROVIDER: Dr. Nae Palm. CHIEF COMPLAINT: Left knee pain and swelling. HISTORY OF PRESENT ILLNESS: Briefly, Joey Briscoe is an 86-year-old male who has had a 3 to 4 day history of bilateral lower extremity pain and swelling of the left knee. He also was diagnosed with cellulitis for bilateral lower extremities. He was seen in the ER and DVT was ruled out as well as CHF. He was having low grade fevers and significant pain. He was able to weight bear, but he had a quite bit of pain. He does not like moving the knee. I was consulted to rule out possible septic knee versus gout. He did have an elevated uric acid several days ago that was 10. He denies any numbness or tingling. He denies any injury. He has no recent illnesses, fevers or chills. PAST MEDICAL HISTORY: Significant for coronary artery disease, type 2 diabetes , chronic kidney disease stage 3B, history of prostate and bladder cancer, hypertension, hyperlipidemia, allergic rhinitis. PAST SURGICAL HISTORY: Three vessel CABG, right leg saphenous vein harvest, cholecystectomy, appendectomy, transurethral bladder cancer resection, prostatectomy. MEDICATIONS: Currently he is on: 1. Tylenol. 2. Aspirin. 3. Atorvastatin. 4. Bumetanide. 5. Keflex. 6. Cetirizine. 7. Glimepiride. 8. Insulin. 9. Metoprolol. 10. Omeprazole. 11. Oxycodone. 12. Polyethylene glycol. 13. Tramadol. ALLERGIES: FUROSEMIDE, IODINE. FAMILY HISTORY: Significant for diabetes as well as high blood pressure. SOCIAL HISTORY: He is a former smoker with 25 pack year history. No alcohol or recreational drugs. He is a and lives alone. He has a daughter that is local. 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 REVIEW OF SYSTEMS: Significant for bilateral lower extremity swelling, low grade temperatures, left knee pain, inability to comfortably weight bear, diabetes as well as heart disease. Otherwise, remainder of systems is negative. PHYSICAL EXAMINATION GENERAL: He is in no acute distress. He is well developed and well nourished. He is alert and oriented x3. He has pleasant mood and normal affect. He is able to stand with assistance, but he is in a lot of pain on his left lower extremity. Poor balance and coordination. HEENT: EOMI. He wears glasses. VITAL SIGNS: Temperature 99.1, pulse 82, respiratory rate 15, oxygen 95% on room air, blood pressure 114/55. LUNGS: Chest is clear. He is breathing comfortably. HEART: Regular rate and rhythm. ABDOMEN: Soft and nontender. EXTREMITIES: Examination of the left knee demonstrates the skin is intact. He does have cellulitis in the bilateral lower extremities. He has a mild to moderate effusion in the left knee. He is very painful with range of motion. He keeps the knee at about 25 degrees flexed. I am able to passively get him to about 20 to about 30 degrees. He is not specifically tender around the joint itself, but grossly he is tender. His calf is soft and nontender. He has a brisk cap refill. He has some evidence of sensation distally. He has some increased warmth in that knee but no obvious erythema that is present. DIAGNOSTIC STUDIES/LABORATORY DATA: Labs today demonstrate red blood cell count 8.7, hematocrit of 43, platelet count of 173. These are from yesterday . Sodium of 135, potassium 4.1, chloride 100, carbon dioxide 28, BUN is 21, creatinine 1.89, and glucose 135. Hemoglobin A1C is 8.4. CRP is 29.55. ESR is pending. X-rays were reviewed that demonstrate mild osteoarthritis. These are nonweightbearing views. There is small effusion. There is no fracture or dislocation. ASSESSMENT AND PLAN: Joey Baer is an 86-year-old male with multiple medical issues with 3 or 4 day history of left knee pain. He does have a warm swollen knee. He has bilateral lower extremity cellulitis. He has elevated CRP, but normal white count. He does have a low grade temperature with a swollen painful left knee. He is having difficulty weightbearing, therefore I think it is prudent to aspirate his knee. We will send it for cell count, Gram stain culture and evaluate it. If the Gram stain is positive or he does have an elevated white blood cell count in the cells, we will take him to the operating room for arthroscopic incision and drainage. He verbalized understanding. After obtaining appropriate verbal consent and brief time-out performed, the left knee was prepped and draped in the usual sterile fashion. An 18 gauge needle was used to aspirate the knee off about 50 cc of yellow mildly cloudy fluid with some particles. About 50 cc were removed using an 18 gauge needle. He tolerated the procedure well and a Band-Aid was applied. I will take the sample myself to the lab for stat Gram stain culture to see if he needs a washout, he will be n.p.o. If the labs came back positive, I will take him to the operating room today for arthroscopic I and D of left knee. [id number]/[facility] #: [id number] SHARON
[2016-11-16 12:57] LABS: Uric Acid 10.6 mg/dL (4.4-7.6)
--- NOTE | 2016-11-16 12:59 | PN ---
Subjective Date of Service: 11/16/16 Interval History: Pt c/o severe left knee pain. He is unable to extend the left knee due to pain. It had been ongoing x3 days. denies fevers. Had similar pain before, but never that severe. Objective Active Medications: Acetaminophen (Tylenol Tab*) 650 mg PO Q6H PRN PRN Reason: FEVER/PAIN Allopurinol (Zyloprim Tab*) 100 mg PO DAILY [facility] Aspirin (Aspirin Ec Low Dose*) 81 mg PO QAM [facility] Last Admin: 11/16/16 08:09 Dose: 81 mg Atorvastatin Calcium (Lipitor*) 5 mg PO QPM [facility] PRN Reason: Protocol Bumetanide (Bumex Tab*) 2 mg PO QPM [facility] Bumetanide (Bumex Tab*) 4 mg PO QAM [facility] Last Admin: 11/16/16 08:06 Dose: 4 mg Cephalexin HCl (Keflex Cap*) 500 mg PO QID [facility] Last Admin: 11/16/16 09:20 Dose: 500 mg Cetirizine HCl (Zyrtec*) 10 mg PO QAM [facility] PRN Reason: Protocol Last Admin: 11/16/16 08:06 Dose: 10 mg Glimepiride (Glimepiride (Nf)) 4 mg PO BID WITH MEALS [facility] PRN Reason: Protocol Last Admin: 11/16/16 08:02 Dose: 4 mg Insulin Human Lispro (Humalog*) 0 units SUBCUT ACHS [facility] PRN Reason: Protocol Last Admin: 11/16/16 08:10 Dose: 3 units Metoprolol Tartrate (Lopressor Tab*) 25 mg PO BID [facility] Last Admin: 11/16/16 08:09 Dose: 25 mg Omeprazole (Prilosec Cap*) 20 mg PO DAILY@0730 [facility] Last Admin: 11/16/16 08:09 Dose: 20 mg Oxycodone HCl (Roxycodone Tab*) 5 mg PO Q4H PRN PRN Reason: PAIN Last Admin: 11/16/16 08:09 Dose: 5 mg Polyethylene Glycol/Electrolytes (Miralax*) 17 gm PO QAM [facility] Last Admin: 11/16/16 08:09 Dose: 17 gm Tramadol HCl (Ultram*) 50 mg PO Q6H PRN PRN Reason: PAIN Last Admin: 11/16/16 11:09 Dose: 50 mg Vital Signs 11/16/16 11/16/16 11/16/16 04:00 04:38 04:55 Temperature 98.9 F 98.9 F Pulse Rate 64 79 79 Respiratory 17 16 16 Rate Blood Pressure 109/56 118/74 118/74 (mmHg) O2 Sat by Pulse 91 99 99 Oximetry 11/16/16 11/16/16 11/16/16 06:47 07:29 08:09 Temperature 99.1 F Pulse Rate 82 Respiratory 16 15 18 Rate Blood Pressure 114/55 (mmHg) O2 Sat by Pulse 95 Oximetry 11/16/16 11:09 Temperature Pulse Rate Respiratory 18 Rate Blood Pressure (mmHg) O2 Sat by Pulse Oximetry Oxygen Devices in Use Now: None Appearance: 86 yo M in nAd, aAOx3 Eyes: No Scleral Icterus, PERRLA Ears/Nose/Mouth/Throat: NL Teeth, Lips, Gums, Mucous Membranes Moist Neck: NL Appearance and Movements; NL JVP, Trachea Midline Respiratory: Symmetrical Chest Expansion and Respiratory Effort, Clear to Auscultation Cardiovascular: NL Sounds; No Murmurs; No JVD, RRR Abdominal: NL Sounds; No Tenderness; No Distention, No Hepatosplenomegaly Lymphatic: No Cervical Adenopathy Extremities: No Clubbing, Cyanosis, - - trace b/l ankle emerald. Left knee with small effusion, tender to palpation, no increased warmth. Unable to extend the knee past 100 degrees due to severe pain. unable to bear weight on left leg Skin: - - venous stasis changes in b/l LE's no cellulitis noted. Neurological: Alert and Oriented x 3, NL Muscle Strength and Tone Result Diagrams: 11/15/16 21:15 11/15/16 21:15 Additional Lab and Data: Lab Results 11/15/16 11/15/16 11/15/16 Range/Units 21:15 21:15 21:15 WBC 8.7 (3.5-10.8) 10^3/ul RBC 4.99 (4.0-5.4) 10^6/ul Hgb 14.3 (14.0-18.0) g/dl Hct 43 (42-52) % MCV 87 (80-94) fL MCH 29 (27-31) pg MCHC 33 (31-36) g/dl RDW 14 (10.5-15) % Plt Count 173 (150-450) 10^3/ul MPV 8 (7.4-10.4) um3 Neut % (Auto) 67.3 (38-83) % Lymph % (Auto) 17.9 L (25-47) % [place] % (Auto) 8.8 (1-9) % Eos % (Auto) 5.4 (0-6) % Baso % (Auto) 0.6 (0-2) % Absolute Neuts (auto) 5.8 (1.5-7.7) 10^3/ul Absolute Lymphs (auto) 1.5 (1.0-4.8) 10^3/ul Absolute Monos (auto) 0.8 (0-0.8) 10^3/ul Absolute Eos (auto) 0.5 (0-0.6) 10^3/ul Absolute Basos (auto) 0.1 (0-0.2) 10^3/ul Absolute Nucleated RBC 0 10^3/ul Nucleated RBC % 0 D-Dimer, Quantitative 374 H (Less Than 230) ng/mL Sodium 135 (133-145) mmol/L Potassium 4.1 (3.5-5.0) mmol/L Chloride 100 L (101-111) mmol/L Carbon Dioxide 28 (22-32) mmol/L Anion Gap 7 (2-11) mmol/L BUN 41 H (6-24) mg/dL Creatinine 1.89 H (0.67-1.17) mg/dL Est GFR ( Amer) 43.6 (>60) Est GFR (Non-Af Amer) 33.9 (>60) BUN/Creatinine Ratio 21.7 H (8-20) Glucose 135 H (70-100) mg/dL Calcium 9.7 (8.6-10.3) mg/dL Total Bilirubin 0.50 (0.2-1.0) mg/dL AST 16 (13-39) U/L ALT 14 (7-52) U/L Alkaline Phosphatase 65 (34-104) U/L C-Reactive Protein 29.55 H (< 5.00) mg/L Total Protein 7.8 (6.4-8.9) g/dL Albumin 4.0 (3.2-5.2) g/dL Globulin 3.8 (2-4) g/dL Albumin/Globulin Ratio 1.1 (1-3) Microbiology and Other Data: Microbiology 11/16/16 11:18 Gram Stain - Final Body Fluid - Knee Left Assess/Plan/Problems-Billing Assessment: 86 yo M with h/o HTN, dyslipidemia, gout, DM2 presents with severe left knee pain, diagnosed with possible cellulits, placed on OBV due to severe pain - Patient Problems (1) Left knee pain Comment: With knee effusion-suspect gout. H/o uric acid at 10.2 -[address] Price . Started onn Allopurinol. No NSAIDS or colchicine due to CKD. will start steroids if dx is confirmed. (2) Cellulitis Comment: c/w cefazolin for now, although no cellulitis evident in exam today. no DVT on doppler study (3) HTN (hypertension) Comment: normmotensive cont lopressor (4) CKD stage 3 due to type 2 diabetes mellitus Comment: creat at baseline cont Bumex (5) DM type 2 (diabetes mellitus, type 2) Comment: cont ISS and glimepride (6) HLD (hyperlipidemia) Comment: cont statin (7) DVT prophylaxis Comment: heparin sc Status and Disposition: OBV
[2016-11-16] MEDS: Allopurinol TAB* 100 MG PO SCH (13:02)
--- NOTE | 2016-11-16 13:26 | PN ---
Progress Note - Progress Note Note: Fluid reviewed and no evidence of infection. WBC in fluid 7.7k, negative gram stain. Would treat conservatively. No plans for operative management. Activity as tolerated. Can follow up with me outpatient for further follow up. Will resume diet as per medical recommendations.
[2016-11-16] MEDS ORDERED: methylPREDNISolone 125 MG* 2 ML VIAL IV ONE (14:02)
[2016-11-16] MEDS: Heparin VIAL(*) 5000 UNITS/ML VIAL (FIVE THOUSAND) SUBCUT SCH ×2 (15:15→20:55)
[2016-11-16] MEDS: Atorvastatin* 10 MG TAB PO SCH (17:53)
[2016-11-17] MEDS: Heparin VIAL(*) 5000 UNITS/ML VIAL (FIVE THOUSAND) SUBCUT SCH ×3 (06:19→21:12)
[2016-11-17] MEDS: predniSONE TAB* 20 MG PO SCH (07:57)
[2016-11-17] MEDS: Cephalexin CAP* 500 MG PO SCH ×4 (07:58→21:10)
[2016-11-17] MEDS: Allopurinol TAB* 100 MG PO SCH (07:58)
[2016-11-17] MEDS: Cetirizine* 10 MG TAB PO SCH (07:58)
[2016-11-17] MEDS: Metoprolol Tartrate TAB* 25 MG PO SCH ×2 (07:59→21:11)
[2016-11-17] MEDS: Aspirin EC Low Dose* 81 MG TAB.EC PO SCH (07:59)
[2016-11-17] MEDS: Omeprazole CAP* 20 MG PO SCH (07:59)
[2016-11-17] MEDS: oxyCODONE TAB* 5 MG TAB PO PRN ×2 (08:00→21:11)
[2016-11-17] MEDS: Insulin LISPRO* 1 UNITS UNIT SUBCUT SCH ×4 (08:02→21:11)
[2016-11-17] MEDS ORDERED: Lidocaine 1% INJ* 10 MG/ML 30 ML SDV INJ ONE (08:25)
[2016-11-17] MEDS ORDERED: methylPREDNISolone ACETATE 80* 80 MG/ML 1 ML VIAL IM ONE (08:25)
[2016-11-17] MEDS: Polyethylene Glycol 3350* 17 GM PACKET PO SCH (09:01)
[2016-11-17] MEDS: CMCS: Glimepiride (NF) 2 MG TAB PO SCH ×2 (09:02→17:24)
[2016-11-17] MEDS: Bumetanide TAB* 2 MG PO SCH ×2 (09:03→17:25)
--- NOTE | 2016-11-17 09:04 | PN ---
Progress Note - Progress Note Note: Pt seen and examined. Feels much better since aspiration but still has pain. Wonders if injection will help. Started on oral prednisone. Denies numbness/ tingling. No fevers or chills. Nurses state he is more comfortable. Temp Pulse Resp BP Pulse Ox 98.8 F 60 18 107/52 96 11/17/16 07:18 11/17/16 07:18 11/17/16 08:00 11/17/16 07:18 11/17/16 07:18 NAD. pleasant, AAOx3. appropriate mood and affect. unable to weight bear comfortably. did not check gait. left leg examined. cellulitis distally able to flex/ext knee more comfortably but still painful. injection site intact. no erythema or warmth. effusion improved. mildly ttp about knee. calf soft. SILT grossly distally. brisk cap refill. Microbiology 11/15/16 21:30 Aerobic Blood Culture - Preliminary Blood Venous No Growth Day 1 Anaerobic Blood Culture - Preliminary No Growth Day 1 11/15/16 21:20 Aerobic Blood Culture - Preliminary Blood Venous No Growth Day 1 Anaerobic Blood Culture - Preliminary No Growth Day 1 11/16/16 11:18 Gram Stain - Final Body Fluid - Knee Left Skin and Soft Tissue MRSA/MSSA (PCR - Final Mrsa Negative S.aureus Negative A/P 86 yo M with acute arthritic flare. WIll offer injection today for pain control. He is agreeable. The left knee was prepped and draped in usual sterile fashion. A 22 g needle was used to inject 5 cc of 1% lidocaine and 80 mg of depomedrol intraarticularly in left knee. A bandaid was applied. Tolerated injection well. Will sign off for now. Please follow up as needed with me [phone]. Appreciate consult
--- NOTE | 2016-11-17 14:19 | PN ---
Subjective Date of Service: 11/17/16 Interval History: Pt feels that the knee has improved, but had not walked yet when examined. Pt also c/o b/l ankle edema for "years". Also c/o that his scrotum is tender to touch for approx 20 years now and he suspects how it happened but he is "too embarrassed to tell" Objective Active Medications: Acetaminophen (Tylenol Tab*) 650 mg PO Q6H PRN PRN Reason: FEVER/PAIN Last Admin: 11/17/16 08:00 Dose: 650 mg Allopurinol (Zyloprim Tab*) 100 mg PO DAILY [facility] Last Admin: 11/17/16 07:58 Dose: 100 mg Aspirin (Aspirin Ec Low Dose*) 81 mg PO QAM [facility] Last Admin: 11/17/16 07:59 Dose: 81 mg Atorvastatin Calcium (Lipitor*) 5 mg PO QPM [facility] PRN Reason: Protocol Last Admin: 11/16/16 17:53 Dose: 5 mg Bumetanide (Bumex Tab*) 2 mg PO QPM [facility] Last Admin: 11/16/16 17:51 Dose: Not Given Bumetanide (Bumex Tab*) 4 mg PO QAM [facility] Last Admin: 11/17/16 09:03 Dose: 4 mg Cephalexin HCl (Keflex Cap*) 500 mg PO QID [facility] Last Admin: 11/17/16 13:44 Dose: 500 mg Cetirizine HCl (Zyrtec*) 10 mg PO QAM [facility] PRN Reason: Protocol Last Admin: 11/17/16 07:58 Dose: 10 mg Glimepiride (Glimepiride (Nf)) 4 mg PO BID WITH MEALS [facility] PRN Reason: Protocol Last Admin: 11/17/16 09:02 Dose: 4 mg Heparin Sodium (Porcine) (Heparin Vial(*)) 5,000 units SUBCUT Q8HR [facility] Last Admin: 11/17/16 13:43 Dose: 5,000 units Insulin Human Lispro (Humalog*) 0 units SUBCUT ACHS [facility] PRN Reason: Protocol Last Admin: 11/17/16 12:03 Dose: 2 units Metoprolol Tartrate (Lopressor Tab*) 25 mg PO BID [facility] Last Admin: 11/17/16 07:59 Dose: 25 mg Omeprazole (Prilosec Cap*) 20 mg PO DAILY@0730 [facility] Last Admin: 11/17/16 07:59 Dose: 20 mg Oxycodone HCl (Roxycodone Tab*) 5 mg PO Q4H PRN PRN Reason: PAIN Last Admin: 11/17/16 08:00 Dose: 5 mg Polyethylene Glycol/Electrolytes (Miralax*) 17 gm PO QAM [facility] Last Admin: 11/17/16 09:01 Dose: 17 gm Prednisone (Deltasone Tab*) 40 mg PO DAILY [facility] Last Admin: 11/17/16 07:57 Dose: 40 mg Tramadol HCl (Ultram*) 50 mg PO Q6H PRN PRN Reason: PAIN Last Admin: 11/16/16 11:09 Dose: 50 mg Vital Signs 11/17/16 11/17/16 11/17/16 10:00 12:00 13:13 Temperature 97.5 F Pulse Rate 66 Respiratory 18 18 16 Rate Blood Pressure 103/58 (mmHg) O2 Sat by Pulse 95 Oximetry Oxygen Devices in Use Now: None Appearance: 86 yo M in nAd, aAOx3 Eyes: No Scleral Icterus, PERRLA Ears/Nose/Mouth/Throat: NL Teeth, Lips, Gums, Mucous Membranes Moist Neck: NL Appearance and Movements; NL JVP, Trachea Midline Respiratory: Symmetrical Chest Expansion and Respiratory Effort, Clear to Auscultation Cardiovascular: NL Sounds; No Murmurs; No JVD, RRR Abdominal: NL Sounds; No Tenderness; No Distention Lymphatic: No Cervical Adenopathy Extremities: No Clubbing, Cyanosis, - - b/l ankle edema L>R. Venous stasis changes and red discoloration of distal LE's R>L. Less left knee edema. ROM in L knee improved: able to extend to 140 degrees Skin: No Nodules or Sclerosis, - - see above. Scrotum palpated, very sensitive to touch, no changes on the skin noted Neurological: Alert and Oriented x 3, NL Muscle Strength and Tone, - - limit ROM left knee as above Result Diagrams: 11/15/16 21:15 11/15/16 21:15 Additional Lab and Data: Lab Results 11/15/16 11/15/16 11/15/16 Range/Units 21:15 21:15 21:15 WBC 8.7 (3.5-10.8) 10^3/ul RBC 4.99 (4.0-5.4) 10^6/ul Hgb 14.3 (14.0-18.0) g/dl Hct 43 (42-52) % MCV 87 (80-94) fL MCH 29 (27-31) pg MCHC 33 (31-36) g/dl RDW 14 (10.5-15) % Plt Count 173 (150-450) 10^3/ul MPV 8 (7.4-10.4) um3 Neut % (Auto) 67.3 (38-83) % Lymph % (Auto) 17.9 L (25-47) % [place] % (Auto) 8.8 (1-9) % Eos % (Auto) 5.4 (0-6) % Baso % (Auto) 0.6 (0-2) % Absolute Neuts (auto) 5.8 (1.5-7.7) 10^3/ul Absolute Lymphs (auto) 1.5 (1.0-4.8) 10^3/ul Absolute Monos (auto) 0.8 (0-0.8) 10^3/ul Absolute Eos (auto) 0.5 (0-0.6) 10^3/ul Absolute Basos (auto) 0.1 (0-0.2) 10^3/ul Absolute Nucleated RBC 0 10^3/ul Nucleated RBC % 0 D-Dimer, Quantitative 374 H (Less Than 230) ng/mL Sodium 135 (133-145) mmol/L Potassium 4.1 (3.5-5.0) mmol/L Chloride 100 L (101-111) mmol/L Carbon Dioxide 28 (22-32) mmol/L Anion Gap 7 (2-11) mmol/L BUN 41 H (6-24) mg/dL Creatinine 1.89 H (0.67-1.17) mg/dL Est GFR ( Amer) 43.6 (>60) Est GFR (Non-Af Amer) 33.9 (>60) BUN/Creatinine Ratio 21.7 H (8-20) Glucose 135 H (70-100) mg/dL Calcium 9.7 (8.6-10.3) mg/dL Total Bilirubin 0.50 (0.2-1.0) mg/dL AST 16 (13-39) U/L ALT 14 (7-52) U/L Alkaline Phosphatase 65 (34-104) U/L C-Reactive Protein 29.55 H (< 5.00) mg/L Total Protein 7.8 (6.4-8.9) g/dL Albumin 4.0 (3.2-5.2) g/dL Globulin 3.8 (2-4) g/dL Albumin/Globulin Ratio 1.1 (1-3) Microbiology and Other Data: Microbiology 11/16/16 11:18 Gram Stain - Final Body Fluid - Knee Left Assess/Plan/Problems-Billing Assessment: 86 yo M with h/o HTN, dyslipidemia, gout, DM2 presents with severe left knee pain, diagnosed with possible cellulits, placed on OBV due to severe pain - Patient Problems (1) Left knee pain Comment: Knee effusion- tapped by Dr. Price, no crystals seen Appreciate ortho conuslt: pseudogout or OA. Started on Allopurino for elevated uric acid. No NSAIDS or colchicine due to CKD. cont PO prednsiuone. Knee injected today by ortho. cont PT. (2) Cellulitis Comment: c/w cefazolin for now, although no cellulitis evident in exam today it was noted at admission. Plan to complete 7 days of antibiotic tx. no DVT on doppler study (3) HTN (hypertension) Comment: normmotensive cont lopressor (4) CKD stage 3 due to type 2 diabetes mellitus Comment: creat at baseline cont Bumex (5) DM type 2 (diabetes mellitus, type 2) Comment: cont ISS and glimepride (6) HLD (hyperlipidemia) Comment: cont statin (7) DVT prophylaxis Comment: heparin sc (8) Dysesthesia Comment: of skin on scrotum chronic possible neuropathy? Will start Lyrica Status and Disposition: OBV will be changed to inpatient. Pt is still not safe to ambulate independently. cont PT
[2016-11-17] MEDS: Atorvastatin* 10 MG TAB PO SCH (17:25)
[2016-11-17] MEDS: Pregabalin CAP(*) 25 MG PO SCH (21:11)
[2016-11-18] MEDS: Heparin VIAL(*) 5000 UNITS/ML VIAL (FIVE THOUSAND) SUBCUT SCH ×3 (05:54→20:55)
[2016-11-18] MEDS: Omeprazole CAP* 20 MG PO SCH (07:16)
[2016-11-18] MEDS: Insulin LISPRO* 1 UNITS UNIT SUBCUT SCH ×4 (07:35→20:54)
[2016-11-18] MEDS: Bumetanide TAB* 2 MG PO SCH ×2 (08:51→17:17)
[2016-11-18] MEDS: Pregabalin CAP(*) 25 MG PO SCH ×2 (08:52→20:54)
[2016-11-18] MEDS: Aspirin EC Low Dose* 81 MG TAB.EC PO SCH (08:52)
[2016-11-18] MEDS: CMCS: Glimepiride (NF) 2 MG TAB PO SCH (08:53)
[2016-11-18] MEDS: Polyethylene Glycol 3350* 17 GM PACKET PO SCH (08:53)
[2016-11-18] MEDS: predniSONE TAB* 20 MG PO SCH (08:53)
[2016-11-18] MEDS: Cephalexin CAP* 500 MG PO SCH ×4 (08:53→20:54)
[2016-11-18] MEDS: Allopurinol TAB* 100 MG PO SCH (08:54)
[2016-11-18] MEDS: Cetirizine* 10 MG TAB PO SCH (08:54)
[2016-11-18] MEDS: Metoprolol Tartrate TAB* 25 MG PO SCH ×2 (08:54→20:53)
[2016-11-18] MEDS: oxyCODONE TAB* 5 MG TAB PO PRN ×2 (08:54→13:50)
[2016-11-18] MEDS: traMADol TAB* 50 MG PO PRN (12:12)
--- NOTE | 2016-11-18 12:23 | PN ---
Subjective Date of Service: 11/18/16 Interval History: Pt still c/o significant pain in R knee , but is able to ambulate with walker and assistance Objective Active Medications: Acetaminophen (Tylenol Tab*) 650 mg PO Q6H PRN PRN Reason: FEVER/PAIN Last Admin: 11/17/16 08:00 Dose: 650 mg Allopurinol (Zyloprim Tab*) 100 mg PO DAILY [facility] Last Admin: 11/18/16 08:54 Dose: 100 mg Aspirin (Aspirin Ec Low Dose*) 81 mg PO QAM [facility] Last Admin: 11/18/16 08:52 Dose: 81 mg Atorvastatin Calcium (Lipitor*) 5 mg PO QPM [facility] PRN Reason: Protocol Last Admin: 11/17/16 17:25 Dose: 5 mg Bumetanide (Bumex Tab*) 2 mg PO QPM [facility] Last Admin: 11/17/16 17:25 Dose: 2 mg Bumetanide (Bumex Tab*) 4 mg PO QAM [facility] Last Admin: 11/18/16 08:51 Dose: 4 mg Cephalexin HCl (Keflex Cap*) 500 mg PO QID [facility] Last Admin: 11/18/16 08:53 Dose: 500 mg Cetirizine HCl (Zyrtec*) 10 mg PO QAM [facility] PRN Reason: Protocol Last Admin: 11/18/16 08:54 Dose: 10 mg Glimepiride (Glimepiride (Nf)) 4 mg PO BID WITH MEALS [facility] PRN Reason: Protocol Last Admin: 11/18/16 08:53 Dose: 4 mg Heparin Sodium (Porcine) (Heparin Vial(*)) 5,000 units SUBCUT Q8HR [facility] Last Admin: 11/18/16 05:54 Dose: 5,000 units Insulin Human Lispro (Humalog*) 0 units SUBCUT ACHS [facility] PRN Reason: Protocol Last Admin: 11/18/16 12:13 Dose: Not Given Metoprolol Tartrate (Lopressor Tab*) 25 mg PO BID [facility] Last Admin: 11/18/16 08:54 Dose: 25 mg Omeprazole (Prilosec Cap*) 20 mg PO DAILY@0730 [facility] Last Admin: 11/18/16 07:16 Dose: 20 mg Oxycodone HCl (Roxycodone Tab*) 10 mg PO Q4H PRN PRN Reason: PAIN Polyethylene Glycol/Electrolytes (Miralax*) 17 gm PO QAM [facility] Last Admin: 11/18/16 08:53 Dose: 17 gm Prednisone (Deltasone Tab*) 40 mg PO DAILY [facility] Last Admin: 11/18/16 08:53 Dose: 40 mg Pregabalin (Lyrica Cap(*)) 25 mg PO BID [facility] Last Admin: 11/18/16 08:52 Dose: 25 mg Tramadol HCl (Ultram*) 50 mg PO Q6H PRN PRN Reason: PAIN Last Admin: 11/18/16 12:12 Dose: 50 mg Vital Signs 11/17/16 11/17/16 11/17/16 13:13 15:14 19:23 Temperature 97.5 F 97.5 F Pulse Rate 66 59 Respiratory 16 17 18 Rate Blood Pressure 103/58 127/62 (mmHg) O2 Sat by Pulse 95 92 Oximetry 11/17/16 11/17/16 11/18/16 21:11 23:42 00:00 Temperature 98.3 F Pulse Rate 57 Respiratory 18 20 Rate Blood Pressure 107/51 (mmHg) O2 Sat by Pulse 95 98 Oximetry 11/18/16 11/18/16 11/18/16 04:01 07:32 08:00 Temperature 97.3 F 98.0 F Pulse Rate 63 69 Respiratory 20 18 16 Rate Blood Pressure 116/62 95/50 (mmHg) O2 Sat by Pulse 98 97 97 Oximetry 11/18/16 11/18/16 11/18/16 08:52 08:54 10:54 Temperature Pulse Rate Respiratory 16 16 16 Rate Blood Pressure (mmHg) O2 Sat by Pulse Oximetry 11/18/16 11/18/16 11:36 12:12 Temperature 98.1 F Pulse Rate 64 Respiratory 18 16 Rate Blood Pressure 105/58 (mmHg) O2 Sat by Pulse 96 Oximetry Oxygen Devices in Use Now: None Appearance: 86 yo M in NAD, aAOx3 Eyes: No Scleral Icterus, PERRLA Ears/Nose/Mouth/Throat: NL Teeth, Lips, Gums, Mucous Membranes Moist Neck: NL Appearance and Movements; NL JVP, Trachea Midline Respiratory: Symmetrical Chest Expansion and Respiratory Effort Cardiovascular: NL Sounds; No Murmurs; No JVD, RRR Abdominal: NL Sounds; No Tenderness; No Distention Lymphatic: No Cervical Adenopathy Extremities: No Clubbing, Cyanosis, - - trace b/l pedal edema. Trace left knee effusion. there is no cellulitis and no increased warmth on palpation of left knee Skin: No Nodules or Sclerosis, - - venous staisis skin discoloration b/l distal LE's Neurological: Alert and Oriented x 3, NL Muscle Strength and Tone Result Diagrams: 11/15/16 21:15 11/15/16 21:15 Additional Lab and Data: Lab Results 11/15/16 11/15/16 11/15/16 Range/Units 21:15 21:15 21:15 WBC 8.7 (3.5-10.8) 10^3/ul RBC 4.99 (4.0-5.4) 10^6/ul Hgb 14.3 (14.0-18.0) g/dl Hct 43 (42-52) % MCV 87 (80-94) fL MCH 29 (27-31) pg MCHC 33 (31-36) g/dl RDW 14 (10.5-15) % Plt Count 173 (150-450) 10^3/ul MPV 8 (7.4-10.4) um3 Neut % (Auto) 67.3 (38-83) % Lymph % (Auto) 17.9 L (25-47) % [place] % (Auto) 8.8 (1-9) % Eos % (Auto) 5.4 (0-6) % Baso % (Auto) 0.6 (0-2) % Absolute Neuts (auto) 5.8 (1.5-7.7) 10^3/ul Absolute Lymphs (auto) 1.5 (1.0-4.8) 10^3/ul Absolute Monos (auto) 0.8 (0-0.8) 10^3/ul Absolute Eos (auto) 0.5 (0-0.6) 10^3/ul Absolute Basos (auto) 0.1 (0-0.2) 10^3/ul Absolute Nucleated RBC 0 10^3/ul Nucleated RBC % 0 D-Dimer, Quantitative 374 H (Less Than 230) ng/mL Sodium 135 (133-145) mmol/L Potassium 4.1 (3.5-5.0) mmol/L Chloride 100 L (101-111) mmol/L Carbon Dioxide 28 (22-32) mmol/L Anion Gap 7 (2-11) mmol/L BUN 41 H (6-24) mg/dL Creatinine 1.89 H (0.67-1.17) mg/dL Est GFR ( Amer) 43.6 (>60) Est GFR (Non-Af Amer) 33.9 (>60) BUN/Creatinine Ratio 21.7 H (8-20) Glucose 135 H (70-100) mg/dL Calcium 9.7 (8.6-10.3) mg/dL Total Bilirubin 0.50 (0.2-1.0) mg/dL AST 16 (13-39) U/L ALT 14 (7-52) U/L Alkaline Phosphatase 65 (34-104) U/L C-Reactive Protein 29.55 H (< 5.00) mg/L Total Protein 7.8 (6.4-8.9) g/dL Albumin 4.0 (3.2-5.2) g/dL Globulin 3.8 (2-4) g/dL Albumin/Globulin Ratio 1.1 (1-3) Microbiology and Other Data: Microbiology 11/16/16 11:18 Gram Stain - Final Body Fluid - Knee Left Assess/Plan/Problems-Billing Assessment: 86 yo M with h/o HTN, dyslipidemia, gout, DM2 presents with severe left knee pain, diagnosed with possible cellulits, placed on OBV due to severe pain - Patient Problems (1) Left knee pain Comment: Knee effusion- tapped by Dr. Price, no crystals seen Appreciate ortho conuslt: pseudogout vs OA. Started on Allopurinol for elevated uric acid. No NSAIDS or colchicine due to CKD. cont PO prednisone and PO oxycodone Knee injected by ortho on 11/17/16. cont PT, but pt is unable to go home in current ambulatory status and requests STR. (2) Cellulitis Comment: c/w cefazolin for now, although no cellulitis evident in exam today it was noted at admission. Plan to complete 7 days of antibiotic tx. no DVT on doppler study (3) HTN (hypertension) Comment: normotensive cont lopressor (4) CKD stage 3 due to type 2 diabetes mellitus Comment: creat at baseline cont Bumex (5) DM type 2 (diabetes mellitus, type 2) Comment: cont ISS BG in AM<90 today, will lower the dose to 2 mg BID (6) HLD (hyperlipidemia) Comment: cont statin (7) Dysesthesia Comment: of skin on scrotum chronic possible neuropathy? cont Lyrica Pt also appears to have varicocele that could cause paz pain. Urology visit as outpatient recommendended (8) DVT prophylaxis Comment: heparin sc Status and Disposition: inpatient. Pt is still not safe to ambulate independently. STR placement at d/c
[2016-11-18] MEDS: Atorvastatin* 10 MG TAB PO SCH (17:18)
[2016-11-19] MEDS: oxyCODONE TAB* 5 MG TAB PO PRN ×3 (04:31→21:20)
[2016-11-19] MEDS: Heparin VIAL(*) 5000 UNITS/ML VIAL (FIVE THOUSAND) SUBCUT SCH ×3 (04:32→21:23)
[2016-11-19] MEDS: Omeprazole CAP* 20 MG PO SCH (07:42)
[2016-11-19] MEDS: Insulin LISPRO* 1 UNITS UNIT SUBCUT SCH ×3 (07:50→21:22)
[2016-11-19] MEDS: Allopurinol TAB* 100 MG PO SCH (08:06)
[2016-11-19] MEDS: Bumetanide TAB* 2 MG PO SCH ×2 (08:07→17:24)
[2016-11-19] MEDS: Aspirin EC Low Dose* 81 MG TAB.EC PO SCH (08:07)
[2016-11-19] MEDS: predniSONE TAB* 20 MG PO SCH (08:07)
[2016-11-19] MEDS: Metoprolol Tartrate TAB* 25 MG PO SCH ×2 (08:08→21:22)
[2016-11-19] MEDS: Pregabalin CAP(*) 25 MG PO SCH ×2 (08:08→21:21)
[2016-11-19] MEDS: Cephalexin CAP* 500 MG PO SCH ×4 (08:09→21:21)
[2016-11-19] MEDS: Polyethylene Glycol 3350* 17 GM PACKET PO SCH (08:09)
[2016-11-19] MEDS: Cetirizine* 10 MG TAB PO SCH (08:09)
[2016-11-19] MEDS ORDERED: GLIMEPIRIDE 2 MG PO SCH (09:00)
[2016-11-19] MEDS ORDERED: Dextrose 50% Syringe 50 ML* 25 GM/50 ML SYRINGE IV PUSH PRN (12:56)
--- NOTE | 2016-11-19 12:58 | PN ---
Subjective Date of Service: 11/19/16 Interval History: Pt feels better after oxycodone dose was increased yesterday. no new complaints. Objective Active Medications: Acetaminophen (Tylenol Tab*) 650 mg PO Q6H PRN PRN Reason: FEVER/PAIN Last Admin: 11/17/16 08:00 Dose: 650 mg Allopurinol (Zyloprim Tab*) 100 mg PO DAILY [facility] Last Admin: 11/19/16 08:06 Dose: 100 mg Aspirin (Aspirin Ec Low Dose*) 81 mg PO QAM [facility] Last Admin: 11/19/16 08:07 Dose: 81 mg Atorvastatin Calcium (Lipitor*) 5 mg PO QPM [facility] PRN Reason: Protocol Last Admin: 11/18/16 17:18 Dose: 5 mg Bumetanide (Bumex Tab*) 2 mg PO QPM [facility] Last Admin: 11/18/16 17:17 Dose: 2 mg Bumetanide (Bumex Tab*) 4 mg PO QAM [facility] Last Admin: 11/19/16 08:07 Dose: 4 mg Cephalexin HCl (Keflex Cap*) 500 mg PO QID [facility] Last Admin: 11/19/16 08:09 Dose: 500 mg [facility] ([facility]tec*) [facility] Reason: Protocol Last Admin: 11/19/16 08:09 Dose: 10 mg Heparin Sodium (Porcine) (Heparin Vial(*)) 5,000 units SUBCUT Q8HR [facility] Last Admin: 11/19/16 04:32 Dose: 5,000 units Metoprolol Tartrate (Lopressor Tab*) 25 mg PO BID [facility] Last Admin: 11/19/16 08:08 Dose: 25 mg Omeprazole (Prilosec Cap*) 20 mg PO DAILY@0730 [facility] Last Admin: 11/19/16 07:42 Dose: 20 mg Oxycodone HCl (Roxycodone Tab*) 10 mg PO Q4H PRN PRN Reason: PAIN Last Admin: 11/19/16 09:23 Dose: 10 mg Polyethylene Glycol/Electrolytes (Miralax*) 17 gm PO QAM [facility] Last Admin: 11/19/16 08:09 Dose: 17 gm Prednisone (Deltasone Tab*) 40 mg PO DAILY [facility] Last Admin: 11/19/16 08:07 Dose: 40 mg Pregabalin (Lyrica Cap(*)) 25 mg PO BID [facility] Last Admin: 11/19/16 08:08 Dose: 25 mg Tramadol HCl (Ultram*) 50 mg PO Q6H PRN PRN Reason: PAIN Last Admin: 11/18/16 12:12 Dose: 50 mg Vital Signs 11/18/16 11/18/16 11/18/16 13:50 14:12 15:17 Temperature 97.4 F Pulse Rate 68 Respiratory 16 16 12 Rate Blood Pressure 109/66 (mmHg) O2 Sat by Pulse 93 Oximetry 11/18/16 11/18/16 11/18/16 15:50 17:50 19:42 Temperature 97.7 F Pulse Rate 68 Respiratory 16 18 12 Rate Blood Pressure 118/61 (mmHg) O2 Sat by Pulse 93 Oximetry 11/18/16 11/18/16 11/18/16 20:00 20:54 22:54 Temperature Pulse Rate Respiratory 18 18 16 Rate Blood Pressure (mmHg) O2 Sat by Pulse Oximetry 11/18/16 11/19/16 11/19/16 23:53 04:31 04:33 Temperature 98.4 F 97.2 F Pulse Rate 59 60 Respiratory 20 18 18 Rate Blood Pressure 122/52 129/69 (mmHg) O2 Sat by Pulse 94 97 Oximetry 11/19/16 11/19/16 11/19/16 07:41 07:51 08:00 Temperature Pulse Rate 57 Respiratory 16 16 16 Rate Blood Pressure 117/65 (mmHg) O2 Sat by Pulse 96 96 Oximetry 11/19/16 11/19/16 08:08 09:23 Temperature Pulse Rate Respiratory 16 16 Rate Blood Pressure (mmHg) O2 Sat by Pulse Oximetry Oxygen Devices in Use Now: None Appearance: 89 yo M in nAd, aAOx3 Eyes: No Scleral Icterus, PERRLA Ears/Nose/Mouth/Throat: NL Teeth, Lips, Gums, Mucous Membranes Moist Neck: NL Appearance and Movements; NL JVP, Trachea Midline Respiratory: Symmetrical Chest Expansion and Respiratory Effort, Clear to Auscultation Cardiovascular: NL Sounds; No Murmurs; No JVD, RRR Abdominal: NL Sounds; No Tenderness; No Distention, No Hepatosplenomegaly Lymphatic: No Cervical Adenopathy Extremities: No Clubbing, Cyanosis, - - trace b/l ankle edema Skin: - - venous stasis discoloration b/l distal LE's Neurological: Alert and Oriented x 3, NL Muscle Strength and Tone Result Diagrams: 11/15/16 21:15 11/15/16 21:15 Additional Lab and Data: Lab Results 11/15/16 11/15/16 11/15/16 Range/Units 21:15 21:15 21:15 WBC 8.7 (3.5-10.8) 10^3/ul RBC 4.99 (4.0-5.4) 10^6/ul Hgb 14.3 (14.0-18.0) g/dl Hct 43 (42-52) % MCV 87 (80-94) fL MCH 29 (27-31) pg MCHC 33 (31-36) g/dl RDW 14 (10.5-15) % Plt Count 173 (150-450) 10^3/ul MPV 8 (7.4-10.4) um3 Neut % (Auto) 67.3 (38-83) % Lymph % (Auto) 17.9 L (25-47) % [place] % (Auto) 8.8 (1-9) % Eos % (Auto) 5.4 (0-6) % Baso % (Auto) 0.6 (0-2) % Absolute Neuts (auto) 5.8 (1.5-7.7) 10^3/ul Absolute Lymphs (auto) 1.5 (1.0-4.8) 10^3/ul Absolute Monos (auto) 0.8 (0-0.8) 10^3/ul Absolute Eos (auto) 0.5 (0-0.6) 10^3/ul Absolute Basos (auto) 0.1 (0-0.2) 10^3/ul Absolute Nucleated RBC 0 10^3/ul Nucleated RBC % 0 D-Dimer, Quantitative 374 H (Less Than 230) ng/mL Sodium 135 (133-145) mmol/L Potassium 4.1 (3.5-5.0) mmol/L Chloride 100 L (101-111) mmol/L Carbon Dioxide 28 (22-32) mmol/L Anion Gap 7 (2-11) mmol/L BUN 41 H (6-24) mg/dL Creatinine 1.89 H (0.67-1.17) mg/dL Est GFR ( Amer) 43.6 (>60) Est GFR (Non-Af Amer) 33.9 (>60) BUN/Creatinine Ratio 21.7 H (8-20) Glucose 135 H (70-100) mg/dL Calcium 9.7 (8.6-10.3) mg/dL Total Bilirubin 0.50 (0.2-1.0) mg/dL AST 16 (13-39) U/L ALT 14 (7-52) U/L Alkaline Phosphatase 65 (34-104) U/L C-Reactive Protein 29.55 H (< 5.00) mg/L Total Protein 7.8 (6.4-8.9) g/dL Albumin 4.0 (3.2-5.2) g/dL Globulin 3.8 (2-4) g/dL Albumin/Globulin Ratio 1.1 (1-3) Microbiology and Other Data: Microbiology 11/16/16 11:18 Gram Stain - Final Body Fluid - Knee Left Assess/Plan/Problems-Billing Assessment: 86 yo M with h/o HTN, dyslipidemia, gout, DM2 presents with severe left knee pain, diagnosed with possible cellulits, placed on OBV due to severe pain - Patient Problems (1) Left knee pain Comment: Knee effusion- tapped by Dr. Price, no crystals seen Appreciate ortho conuslt: pseudogout vs OA. Started on Allopurinol for elevated uric acid. No NSAIDS or colchicine due to CKD. cont PO prednisone and PO oxycodone Knee injected by ortho on 11/17/16. cont PT, but pt is unable to go home in current ambulatory status and requested STR. Plan to d/c to STR tomorrow (2) Cellulitis Comment: c/w cefazolin for now, although no cellulitis evident in exam today it was noted at admission. Plan to complete 7 days of antibiotic tx. no DVT on doppler study (3) HTN (hypertension) Comment: normotensive cont lopressor (4) CKD stage 3 due to type 2 diabetes mellitus Comment: creat at baseline cont Bumex (5) DM type 2 (diabetes mellitus, type 2) Comment: hypoglycemic today. Glimepride held. cont ISS (6) HLD (hyperlipidemia) Comment: cont statin (7) Dysesthesia Comment: of skin on scrotum chronic possible neuropathy? cont Lyrica Pt also appears to have varicocele that could cause paz pain. Urology visit as outpatient recommended (8) DVT prophylaxis Comment: heparin sc Status and Disposition: inpatient. Pt is still not safe to ambulate independently. STR placement at d/c tomorrow
[2016-11-19] MEDS: Atorvastatin* 10 MG TAB PO SCH (17:24)
[2016-11-20] MEDS: oxyCODONE TAB* 5 MG TAB PO PRN (05:33)
[2016-11-20] MEDS: Heparin VIAL(*) 5000 UNITS/ML VIAL (FIVE THOUSAND) SUBCUT SCH (05:33)
[2016-11-20 08:05] VITALS: BP 124/75
[2016-11-20] MEDS ORDERED: predniSONE TAB* 20 MG PO SCH (09:00)
[2016-11-20] MEDS ORDERED: CMC:Glimepiride (NF) 2 MG TAB PO SCH (09:00)
[2016-11-20] MEDS: Insulin LISPRO* 1 UNITS UNIT SUBCUT SCH (09:21)
[2016-11-20] MEDS: Bumetanide TAB* 2 MG PO SCH (09:29)
[2016-11-20] MEDS: Cephalexin CAP* 500 MG PO SCH (09:29)
[2016-11-20] MEDS: Omeprazole CAP* 20 MG PO SCH (09:30)
[2016-11-20] MEDS: Pregabalin CAP(*) 25 MG PO SCH (09:30)
[2016-11-20] MEDS: Cetirizine* 10 MG TAB PO SCH (09:30)
[2016-11-20] MEDS: Metoprolol Tartrate TAB* 25 MG PO SCH (09:30)
[2016-11-20] MEDS: Allopurinol TAB* 100 MG PO SCH (09:31)
[2016-11-20] MEDS: Polyethylene Glycol 3350* 17 GM PACKET PO SCH (09:31)
[2016-11-20] MEDS: Aspirin EC Low Dose* 81 MG TAB.EC PO SCH (09:31)
--- NOTE | 2016-11-20 10:24 | DS ---
DATE OF ADMISSION: 11/16/2016 DATE OF DISCHARGE: 11/20/2016 PRIMARY MEDICAL PROVIDER: Dr. Andres Suarez DISCHARGE DISPOSITION: Patient is being discharged to [facility] short term rehabilitation. DISCHARGE DIAGNOSES: 1. Left knee effusion and pain secondary to osteoarthritis versus pseudogout. 2. Bilateral lower extremity cellulitis. SECONDARY DIAGNOSES: 1. History of coronary artery disease and status post CABG. 2. History of diabetes type 2. 3. Chronic kidney disease stage 3. 4. History of prostate cancer and bladder cancer. 5. Hypertension. 6. Dyslipidemia. 7. Allergic rhinitis. 8. Bilateral leg edema. 9. History of leg cellulitis in the past. MEDICATIONS AT DISCHARGE: Include: 1. Tylenol 650 mg every 6 hours p.r.n. 2. Allopurinol 100 mg daily. 3. Aspirin 81 mg daily. 4. Bumex 2 mg q.p.m. and 4 mg q.a.m. 5. Keflex 500 mg 4x a day with last dose being on 11/23/16. 6. Zyrtec 10 mg daily. 7. Vitamin D3 2000 units daily. 8. Glimepiride 2 mg daily. 9. Clobetasol propionate 0.05% topical b.i.d. to effected area of the skin. 10. Insulin sliding scale. 11. Metoprolol succinate 25 mg daily. 12. Metoprolol tartrate 25 mg b.i.d. 13. Protonix 40 mg daily. 14. MiraLax 17 g daily. 15. Pravachol 20 mg daily. 16. Lyrica 25 mg b.i.d. 17. Oxycodone 10 mg every 4 hours p.r.n. 18. Prednisone taper at 20 mg p.o. daily for a total of 3 days, then 10 mg daily for 3 days, then stop. FOLLOWUP: 1. At discharge patient is recommended to followup with physician at [facility] within the next 3-4 days. 2. Patient also recommended to followup with Dr. Price in 1-2 weeks. LABORATORY DATA: Studies performed during the hospital stay included: 1. Patient's uric acid was noted to be 10.6 at admission. 2. Synovial fluid analysis showed cloudy fluid, 7791 white blood cells, 35 red blood cells, 83% neutrophils, 2 lymphocytes, 15 monocytes. There were no crystals seen. 3. Patient's blood cultures were negative. 4. Synovial fluid culture was negative. PROCEDURES DURING THE HOSPITAL STAY: Included left knee arthrocentesis performed by Dr. Price on 11/16/16 with fluid as above showing over 7000 white blood cells, but no bacteria and no crystals. CONSULTATIONS DURING THE HOSPITAL STAY: Included Dr. Price from Orthopedic Surgery. HOSPITALIZATION COURSE: Joey Briscoe is an 86-year-old male with the above mentioned chronic medical conditions who presented to the hospital complaining about leg pain and edema, as well as erythema. Patient appeared to have cellulitis at admission and was placed on cefazolin with good result. Within 24 hours he no longer had cellulitic lesions, but he did appear to have venous stasis discoloration of bilateral lower extremities. Nevertheless he continued to have problems with weightbearing on the left leg. He was noted to have left knee effusion and tenderness, although no increased warmth was noted and no cellulitis was noted. Dr. Price saw the patient in consultation. Due to elevation of uric acid at over 10, it was suspected the patient most likely has gout. Dr. Price obtained fluid from the left knee which showed elevated white blood cells, but no evidence of crystals and no bacteria. Cultures did not grow anything. At this point, as per Dr. Price, patient most likely has gout or osteoarthritis. Dr. Price injected the patient's knee with steroids on and the pain is improved to the point that patient is able to weight bear on his left leg, but still continued to have problems with independent ambulation with a walker. He was also placed on allopurinol for his elevated uric acid level. Unfortunately due to his chronic kidney disease he was not a candidate for antiinflammatory medications (NSAIS's) and not a candidate for colchicine if it needed to be, if he were to be treated for gout. At this point, due to the possibility of arthritis or pseudogout, patient was started on steroids. He was on prednisone 40 mg for a few days during the hospital stay which was lowered to 20 mg at the time of discharge. He underwent physical therapy evaluation and was deemed to be a good candidate for short term rehabilitation. Please note also that patient had been on glimepiride during hospital stay for the initial 2 days. His sugars had been fairly controlled, but later on he developed morning hypoglycemia. His glimepiride was held for a day and restarted on the day of discharge at a smaller dose of 2 mg on a daily basis only. I suspect patient will not tolerate glimepiride for the evening dose if he continues to be on a strict diabetic diet at a facility. He most likely will need to be started on 4 mg of glimepiride twice a day if he goes home. At this point, at discharge, apart from the glimepiride he is also recommended to continue insulin sliding scale due to his uncontrolled sugars. That may also improve once his steroids are discontinued. In regards to bilateral lower extremity cellulitis that was noted on admission, but not present 24 hours later. Keflex was continued throughout his hospital stay. Patient is recommended to finish a 7 day course of Keflex with the last dose being on 11/23/16. 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 PHYSICAL EXAMINATION: At time of discharge blood pressure fine at 85/74, heart rate of 59 and regular, respiratory rate 18, oxygen saturation 97% on room, temperature 96.9. General: This is a very pleasant 86-year-old male who is in no acute distress. Alert, awake and oriented x3. HEENT: Head atraumatic, normocephalic. Eyes: Pupils are equal and reactive to light and accommodation. Oropharynx clear. Mucosa moist. Neck: Supple. No JVD. No bruit bilaterally is heard. Cardiovascular: Regular rate and rhythm. No murmur. Respiratory: Clear to auscultation bilaterally. Abdomen: Soft, nontender. Bowel sounds are present in all 4 quadrants. Extremities: There is trace bilateral pedal edema. +2 pulses bilaterally. No clubbing or cyanosis. On examination of the left knee patient has small knee effusion. His range of motion is 4 on the left knee, although limited by pain still. Neuro evaluation cranial nerves II through XII grossly intact. Strength is 5/5 bilaterally. On evaluation of the skin venostasis red discoloration of bilateral lower extremities noted. No evidence of cellulitis. On psychiatric evaluation patient is a rather poor historian with poor understanding of his medical condition, but pleasant, cooperative and oriented x3. Please note during the hospital stay patient noted and informed one of the nurses that he has had scrotal tenderness for approximately 20 years now. On evaluation he did have extreme skin dysesthesia. He also was noted to have a small varicocele. It is suspected that the tenderness of the scrotum that has been going on chronically is most likely related to varicocele. Nevertheless Lyrica was started for possibility of painful neuropathy. Please note this is a short summary of patient's hospital stay. Please refer to further medical records for details. Approximately 45 minutes was spent on the patient's discharge. CC: Dr. Andres Suarez; Dr. Price from Orthopedic Surgery; [facility] * [id number]/[facility] [place] #: [id number] MTDD
== END 2016-11-20 12:00 | DRG 565 ==
LOC: ED 17:19 → MED 11-16 03:36 → OBSVTOIN 11-17 09:29
PROVIDERS: ADMIT Hospitalist; ATTEND Internal Medicine
PROC: 0S9D3ZX Drainage of Left Knee Joint, Percutaneous Approach, Diagnostic (ICD-10-PCS; principal; 2016-11-16)
DX: M25.462 Effusion, left knee (principal); I25.810 Atherosclerosis of coronary artery bypass graft(s) without angina pectoris; E11.22 Type 2 diabetes mellitus with diabetic chronic kidney disease; L03.115 Cellulitis of right lower limb; I13.10 Hypertensive heart and chronic kidney disease without heart failure, with stage 1 through stage 4 chronic kidney disease, or unspecified chronic kidney disease; L03.116 Cellulitis of left lower limb; R60.0 Localized edema; M17.12 Unilateral primary osteoarthritis, left knee; N18.3 Chronic kidney disease, stage 3 (moderate); Z95.1 Presence of aortocoronary bypass graft; E78.5 Hyperlipidemia, unspecified; J30.9 Allergic rhinitis, unspecified; Z85.46 Personal history of malignant neoplasm of prostate; Z85.51 Personal history of malignant neoplasm of bladder; M10.9 Gout, unspecified; Z79.1 Long term (current) use of non-steroidal anti-inflammatories (NSAID); Z79.82 Long term (current) use of aspirin; Z79.4 Long term (current) use of insulin; Z79.891 Long term (current) use of opiate analgesic; Z79.899 Other long term (current) drug therapy; Z88.8 Allergy status to other drugs, medicaments and biological substances; Z91.048 Other nonmedicinal substance allergy status; Z83.3 Family history of diabetes mellitus; Z82.49 Family history of ischemic heart disease and other diseases of the circulatory system; Z87.891 Personal history of nicotine dependence; Z66 Do not resuscitate
CPT/HCPCS: 36415; 80053; 83036; 84550; 85025; 85379; 85652; 85730; 86140; 87040; 87205; 87640; 87641; 89051; 89060; 93970; 94760; 99212; 99285; A9270-GY; G0378; G0463; G8978-GP-CK; G8979-GP-CI; J0690; J1040; J1170; J1644; J2001; J2930; J7512

== ENCOUNTER 2019-01-18 13:38 | Emergency (ER) | payer MEDICARE, BC ==
[2019-01-18 14:24] VITALS: BP 134/71
--- NOTE | 2019-01-18 15:04 | UC ---
UC General HPI - HPI Summary HPI Summary: PT IS C/O A 2-3 WEEK HX OF INCREASING SWELLING AND PAIN TO BOTH FEET, L>>R. HE ADMITS TO HIS FEET BEING A LITTLE RED WELL. HE DENIES CHEST PAIN AND ACUTE SOB. HE DENIES FEVER AND CHILLS. HE CALLED HIS PCP BUT THEY HAD NO AVAILABLE APPOINTMENTS. TRIAGE NOTE DOCUMENTED FEET NOT RED-DISCREPANCY NOTED. PT ADMITS TO HX CELLULITIS. HE HAS GOUT BUT THIS FEELS DIFFERENT. AM BS WAS 340 TODAY BUT PT STATES "MY FAULT" BECAUSE HE IS EATING EVERYTHING. - History of Current Complaint Chief Complaint: UCLowerExtremity Stated Complaint: LT FOOT SWELLING/PAIN Time Seen by Provider: 01/18/19 14:51 Hx Obtained From: Patient Onset/Duration: Gradual Onset Timing: Constant Pain Intensity: 5 Associated Signs & Symptoms: Negative: Fever - Allergy/Home Medications Allergies/Adverse Reactions: Allergies Allergy/AdvReac Type Severity Reaction Status Date / Time furosemide Allergy Rash Verified 01/18/19 14:29 iodine Allergy Hives Verified 01/18/19 14:29 piperacillin [From Zosyn] Allergy Hives Verified 01/18/19 14:29 tazobactam [From Zosyn] Allergy Hives Verified 01/18/19 14:29 PMH/Surg Hx/FS Hx/Imm Hx - Additional Past Medical History Additional PMH: CELLULITIS, ROGER, CKD Endocrine History: Diabetes, Dyslipidemia Cardiovascular History: Hypertension, Congestive Heart Failure, Other - CAD - Surgical History Surgical History: Yes Surgery Procedure, Year, and Place: TRIPLE BYPASS, DEFIBRALATOR,PROSTATE REMOVAL , NEPHRECTOMY-LEFT 1970,GALL BLADDER,APPENDECTOMY,LEFT SHOULDER SURGERY, - Family History Known Family History: Positive: Hypertension, Diabetes - Social History Alcohol Use: None Substance Use Type: None Smoking Status (MU): Former Smoker When Did the Patient Quit Smoking/Using Tobacco: 1988 - Immunization History Most Recent Influenza Vaccination: unknown Most Recent Tetanus Shot: unknown Most Recent Pneumonia Vaccination: uknown Review of Systems All Other Systems Reviewed And Are Negative: Yes Constitutional: Negative: Fever, Chills Skin: Positive: Rash - BLE'S/FEET ARE RED Respiratory: Negative: Shortness Of Breath Cardiovascular: Negative: Chest Pain Gastrointestinal: Negative: Vomiting, Nausea Musculoskeletal: Positive: Edema - ble'S/FEET. Negative: Decreased ROM Physical Exam Triage Information Reviewed: Yes Appearance: Well-Appearing Vital Signs: Initial Vital Signs Temp 97.6 F 01/18/19 14:15 Pulse 70 01/18/19 14:15 Resp 16 01/18/19 14:15 BP 134/71 01/18/19 14:15 Pulse Ox 98 01/18/19 14:15 Vital Signs Reviewed: Yes Eyes: Positive: Conjunctiva Clear ENT: Negative: Nasal congestion Neck: Positive: Supple, Nontender, Other: - No JVD. Respiratory: Positive: Lungs clear, Normal breath sounds, No respiratory distress Cardiovascular: Positive: RRR, No Murmur Abdomen Description: Positive: Nontender Musculoskeletal: Positive: ROM Intact, Other: - Pt has mild swelling to lower 1/ 3 of BLE's into his feet which have moderate swelling. There is corresponding erythema and some mild warmth. No open wounds or breakdown in skin. The feet have gross s/v/m function. Old scar RLE fron vein harvest noted. There is no streaking. Feet not grossly tender. Pt c/o pain L foot while applying sock. Gait is stable and without difficulty or pain while using his walker. Neurological: Positive: Alert Psychological: Positive: Age Appropriate Behavior Skin Exam: Normal Course/Dx - Course Course Of Treatment: CALL PLACED TO DR SUAREZ WHO WAS KIND ENOUGH TO CALL ME BACK. I ADVISED HER OF PT'S HX AND PE. SHE REQUEST 1. INCREASE BUMEX TO BID X3 DAYS 2. F/U THIS WEEK WITH DR LOPEZ OR JOYCE HERNÁNDEZ, IF ANY PROBLEMS ASK FOR RODNEY WHO WILL CALL HER 3. ELEVATED FEET 4. LIMIT SALT INTAKE 5. TAKE A PROBIOTIC DAILY. SHE AGREES TO TX WITH KEFLEX BUT 500MG BID DUE TO HIS CKD. PT DID LIST A ZOSYN ALLERGY BUT STATES HE HAS TAKEN KEFLEX AND "IT WORKS GREAT". DR SUAREZ DID ADVISE PT HAS A HX OF THE SAME. - Differential Dx - Multi-Symptom Differential Diagnoses: Other - non toxic. no concern for dvt, fx, chf or osteomyelitis. - Diagnoses Provider Diagnosis: Cellulitis of both feet, Edema of both legs Discharge - Sign-Out/Discharge Documenting (check all that apply): Patient Departure All imaging exams completed and their final reports reviewed: No Studies - Discharge Plan Condition: Stable Disposition: HOME Prescriptions: Cephalexin CAP* [Keflex CAP*] 500 mg PO BID 10 Days #20 cap Patient Education Materials: Cellulitis (DC), Leg Edema (ED) Referrals: Andres Suarez MD [Primary Care Provider] - Additional Instructions: PER DR SUAREZ, 1. INCREASE YOUR BUMEX TO TWICE DAILY FOR 3 DAYS. GO BACK TO ONCE DAILY AFTER THAT. 2. KEEP YOUR FEET ELEVATED. 3. LIMIT YOUR SALT INTAKE. 4. START A PROBIOTIC DAILY WHILE ON THE ANTIBIOTIC(ASK THE PHARMACY TO HELP YOU PICK ONE). 5. CALL THE OFFICE TO BE SEEN THIS WEEK BY DR LOPEZ OR BY DR DWIGHT HERNÁNDEZ. IF THEY DO NOT GET YOU IN, ASK FOR RODNEY. RODNEY WILL CALL DR SUAREZ AND SHE WILL TAKE CARE OF THIS SO THAT YOU GET SEEN. - Billing Disposition and Condition Condition: STABLE Disposition: Home - Attestation Statements Provider Attestation: Per institutional requirements, I have reviewed the chart, however, I was not consulted specifically or made aware of this patient by the midlevel provider. I did not personally evaluate, interact with , or disposition this patient.
== END 2019-01-18 15:46 | disposition home or self-care (01) ==
LOC: UCCORT 13:38
DX: L03.116 Cellulitis of left lower limb (principal); L03.115 Cellulitis of right lower limb; R60.9 Edema, unspecified; M10.9 Gout, unspecified; I13.0 Hypertensive heart and chronic kidney disease with heart failure and stage 1 through stage 4 chronic kidney disease, or unspecified chronic kidney disease; N18.9 Chronic kidney disease, unspecified; I50.9 Heart failure, unspecified; E11.9 Type 2 diabetes mellitus without complications; Z95.1 Presence of aortocoronary bypass graft; Z95.810 Presence of automatic (implantable) cardiac defibrillator; Z87.891 Personal history of nicotine dependence
CPT/HCPCS: 99212; G0463